=== PATIENT | female | born 1980 | race American Indian/Alaskan Native ===

== ENCOUNTER 2017-05-23 02:11 | Emergency (ER) | payer SELFPAY ==
[2017-05-23] MEDS ORDERED: ASPIRIN PO ONE (05:40)
[2017-05-23 06:01] LABS: Bilirubin,Urine NEG (Negative); Blood,Urine SM (Negative); Color,Urine Yellow (Yellow); Mucus,Urine FEW /HPF; Protein,Urine <15 mg/dL mg/dL (Negative); RBC,Urine < 1.0 /HPF (0.0-6.0); Urobilinogen,Urine < 2.0 mg/dL (<2.0)
[2017-05-23 06:11] LABS: Basophils % (Auto) 0.3 % (0.0-1.8); Eosinophils # (Auto) 0.1 K/mm3 (0.0-0.4); Eosinophils % (Auto) 0.9 % (0.0-4.3); Hematocrit 37.1 % (30.3-42.9); Hemoglobin 12.3 gm/dl (10.1-14.3); Lymphocytes # (Auto) 2.2 K/mm3 (1.2-5.4); Lymphocytes % (Auto) 38.5 % (13.4-35.0); Mean Corpuscular HGB Conc 33 % (30-34); Mean Corpuscular Hemoglobin 27 pg (28-32); Mean Corpuscular Volume 81 fl (79-97); Monocytes # (Auto) 0.5 K/mm3 (0.0-0.8); Monocytes % (Auto) 8.4 % (0.0-7.3); Platelet Count 374 K/mm3 (140-440); Red Blood Count 4.57 M/mm3 (3.65-5.03); Red Cell Distribution Width 14.3 % (13.2-15.2)
[2017-05-23 06:23] LABS: BUN/Creatinine Ratio 13; Blood Urea Nitrogen 8 mg/dL (7-17); Calcium 8.8 mg/dL (8.4-10.2); Hemolysis Index 2
[2017-05-23 12:00] VITALS: BP 127/68
[2017-05-23] MEDS ORDERED: ZOFRAN ODT PO ONE (12:16)
--- NOTE | 2017-05-23 12:50 | XRay Report ---
ABDOMINAL SERIES: History: Chest pain, abdominal pain. Supine and upright views of the abdomen and frontal view of the chest are submitted. There is gas mixed with moderate stool throughout the colon. There are no dilated loops of bowel or air-fluid levels. There is no free intraperitoneal gas. The lungs are clear. IMPRESSION: Fecal retention.
--- NOTE | 2017-05-23 13:04 | Emergency Department Report ---
ED Chest Pain HPI - General Chief Complaint: Chest Pain Stated Complaint: CHEST PAIN, BREAST SWELLING Time Seen by Provider: 05/23/17 12:01 Source: patient Mode of arrival: Ambulatory Limitations: No Limitations - History of Present Illness Initial Comments: This is a 37 year-old female presents to the emergency department with a complaint of a 2 to three-day history of some midsternal nonradiating chest pain, breast swelling, abdominal bloating and increased frequent urination. The patient says that she feels like she is but she took a home test and said it was negative. She says that her abdomen feels like there is "something crawling around inside of it." She also had one episode of vomiting yesterday but still has some mild nausea. She does not currently have a primary care physician. She denies any past medical history. No recent travel or sick contacts at home. She has not taken anything for her symptoms prior to presentation. Severity scale (0 -10): 4 - Related Data Previous Rx's Medication Instructions Recorded Last Taken Type Docusate Sodium [Colace] 100 mg PO BID PRN #20 capsule 05/23/17 Unknown Rx Magnesium Citrate [Citrate of 300 ml PO NOW #1 bottle 05/23/17 Unknown Rx Magnesia] Allergies Allergy/AdvReac Type Severity Reaction Status Date / Time No Known Allergies Allergy Unverified 05/23/17 05:39 Heart Score - HEART Score History: Slightly suspicious EKG: Normal Age: < 45 Risk factors: No known risk factors Troponin: < normal limit HEART Score: 0 - Critical Actions Critical Actions: 0-3 pts:0.9-1.7%risk of adverse cardiac event.Candidate for discharge ED Review of Systems ROS: Stated complaint: CHEST PAIN, BREAST SWELLING Other details as noted in HPI Comment: All other systems reviewed and negative Constitutional: denies: chills, fever Eyes: denies: eye pain, eye discharge, vision change ENT: denies: ear pain, throat pain Respiratory: denies: cough, shortness of breath, wheezing Cardiovascular: chest pain. denies: palpitations Gastrointestinal: abdominal pain, nausea Genitourinary: denies: urgency, dysuria, discharge Musculoskeletal: denies: back pain, joint swelling, arthralgia Skin: denies: rash, lesions Neurological: denies: headache, weakness, paresthesias ED Past Medical Hx - Past Medical History Previous Medical History?: No - Surgical History Past Surgical History?: Yes Additional Surgical History: x1 - Social History Smoking Status: Never Smoker Substance Use Type: None - Medications Home Medications: Home Medications Medication Instructions Recorded Confirmed Last Taken Type Docusate Sodium [Colace] 100 mg PO BID PRN #20 capsule 05/23/17 Unknown Rx Magnesium Citrate [Citrate of 300 ml PO NOW #1 bottle 05/23/17 Unknown Rx Magnesia] ED Physical Exam - General Limitations: No Limitations - Other Other exam information: GENERAL: The patient is well-developed well-nourished. HENT: Normocephalic. Atraumatic. Patient has moist mucous membranes. EYES: Extraocular motions are intact. Pupils equal reactive to light bilaterally. NECK: Supple. Trachea is midline. CHEST/LUNGS: Clear to auscultation. There is no respiratory distress noted. HEART/CARDIOVASCULAR: Regular. There is no tachycardia. There is no murmur. ABDOMEN: Abdomen is soft, nontender. Patient has normal bowel sounds. There is no abdominal distention. SKIN: Skin is warm and dry. NEURO: The patient is awake, alert, and oriented. The patient is cooperative. The patient has no focal neurologic deficits. The patient has normal speech. MUSCULOSKELETAL: There is no tenderness or deformity. There is no limitation range of motion. There is no evidence of acute injury. ED Course Vital Signs 05/23/17 05/23/17 05/23/17 05:32 11:58 11:59 Temperature 98 F 98.2 F Pulse Rate 75 67 Respiratory 18 13 13 Rate Blood Pressure 114/64 Blood Pressure 127/68 [Right] O2 Sat by Pulse 98 100 100 Oximetry JEIMY score - Jeimy Score Age > 65: (0) No Aspirin use within the Past 7 Days: (0) No 3 or more CAD Risk Factors: (0) No 2 or more Angina events in past 24 hrs: (0) No Known CAD with more than 50% Stenosis: (0) No Elevated Cardiac Markers: (0) No ST Deviation Greater than 0.5mm: (0) No JEIMY Score: 0 ED Medical Decision Making - Lab Data Result diagrams: 05/23/17 05:53 05/23/17 05:53 - EKG Data -: EKG Interpreted by Nv EKG shows normal: sinus rhythm, axis, intervals, QRS complexes, ST-T waves Rate: normal - EKG Data When compared to previous EKG there are: previous EKG unavailable Interpretation: normal EKG - Radiology Data Radiology results: image reviewed interpreted by me: Chest x-ray does not show any acute process. There are no pleural effusions, obvious pneumonia and there is no pneumothorax. Abdominal x-ray shows increased stool volume and nonspecific bowel gas but no signs of obstruction or any other acute process. - Medical Decision Making Patient presents with complaint of some intermittent chest pain, breast swelling , some bloating and a weird abdominal sensation. We confirmed, via labs, the patient is not . EKG did not show any signs of ST elevation [place], ischemia or dysrhythmia. Labs have been mostly unremarkable including negative troponins 3. She has normal belly labs. Urinalysis does not show any urinary tract infection. Chest x-ray does not show any acute process. Abdominal x-ray shows increased stool volume and some fecal retention. Vital signs stable throughout her ED course including being afebrile. The patient is very low on the Magana score criteria and has a JEIMY score of 0. She is low on the well's score criteria and negative on the pulmonary embolism rule out criteria. She appears safe for discharge at this time. She has been given multiple referrals for primary care clinics in the area. She has been given a prescription for stool softeners and laxative. She has been encouraged to return to the emergency Department with any worsening of her symptoms or any acute distress. - Differential Diagnosis constipation, [place], pneumonia, Critical Care Time: No Critical care attestation.: If time is entered above; I have spent that time in minutes in the direct care of this critically ill patient, excluding procedure time. ED Disposition Clinical Impression: Increased stool volume Chest pain Qualifiers: Chest pain type: unspecified Qualified Code(s): R07.9 - Chest pain, unspecified Abdominal pain Qualifiers: Abdominal location: generalized Qualified Code(s): R10.84 - Generalized abdominal pain Disposition: - TO HOME OR SELFCARE Is pt being admited?: No Condition: Stable Instructions: Chest Pain (ED), Constipation (ED), High Fiber Diet (ED), Abdominal Pain (ED) Additional Instructions: Please follow up with a primary care physician as soon as possible. Return to the emergency Department with any worsening of your symptoms or any acute distress. Prescriptions: Docusate Sodium [Colace] 100 mg PO BID PRN #20 capsule PRN Reason: Constipation Magnesium Citrate [Citrate of Magnesia] 300 ml PO NOW #1 bottle Referrals: [facility] [Outside] - 3-5 Days [facility] [Outside] - 3-5 Days [facility] [Outside] - 3-5 Days [facility] [Outside] - 3-5 Days Time of Disposition: 13:12
== END 2017-05-23 13:50 | disposition home or self-care (01) ==
LOC: ED 02:11
DX: R07.89 Other chest pain (principal)
CPT/HCPCS: 36415; 74022; 80048; 81001; 84484; 84703; 85025; 87086; 93005; 93010; 99284; Q0162

== ENCOUNTER 2017-07-18 00:34 | Emergency (ER) | payer SELFPAY ==
[2017-07-18 02:13] LABS: Basophils # (Auto) 0.1 K/mm3 (0.0-0.1); Basophils % (Auto) 0.6 % (0.0-1.8); Eosinophils # (Auto) 0.1 K/mm3 (0.0-0.4); Eosinophils % (Auto) 1.1 % (0.0-4.3); Hematocrit 39.2 % (30.3-42.9); Lymphocytes # (Auto) 2.5 K/mm3 (1.2-5.4); Lymphocytes % (Auto) 29.2 % (13.4-35.0); Mean Corpuscular HGB Conc 33 % (30-34); Mean Corpuscular Hemoglobin 27 pg (28-32); Mean Corpuscular Volume 81 fl (79-97); Monocytes # (Auto) 0.4 K/mm3 (0.0-0.8); Monocytes % (Auto) 4.4 % (0.0-7.3); Platelet Count 390 K/mm3 (140-440); Red Blood Count 4.82 M/mm3 (3.65-5.03); Red Cell Distribution Width 14.5 % (13.2-15.2)
[2017-07-18 02:22] LABS: Alanine Aminotransferase 9 units/L (7-56); Albumin 4.2 g/dL (3.9-5); BUN/Creatinine Ratio 7; Blood Urea Nitrogen 5 mg/dL (7-17); Calcium 9.4 mg/dL (8.4-10.2); Hemolysis Index 5
[2017-07-18 08:10] VITALS: BP 100/57
--- NOTE | 2017-07-18 09:31 | Emergency Department Report ---
ED Abdominal Pain HPI - General Chief Complaint: Abdominal Pain Stated Complaint: ABD PAIN Time Seen by Provider: 07/18/17 09:25 Source: patient Mode of arrival: Ambulatory Limitations: No Limitations - History of Present Illness Initial Comments: N is 37 years old female with no significant past medical history. Patient presented to the ER complaining of suprapubic pain for the last 3 days associated with dysuria and frequency. Patient denied any fever, chills, nausea or vomiting. MD Complaint: abdominal pain -: days(s) Location: suprapubic Radiation: none Migration to: no migration Severity scale (0 -10): 10 Quality: fullness, burning Consistency: intermittent Associated Symptoms: denies other symptoms, dysuria. denies: nausea, vomiting, diarrhea, chills, constipation - Related Data Previous Rx's Medication Instructions Recorded Last Taken Type Docusate Sodium [Colace] 100 mg PO BID PRN #20 capsule 05/23/17 Unknown Rx Magnesium Citrate [Citrate of 300 ml PO NOW #1 bottle 05/23/17 Unknown Rx Magnesia] Ciprofloxacin HCl [Ciprofloxacin 500 mg PO Q12H #14 tab 07/18/17 Unknown Rx TAB] Allergies Allergy/AdvReac Type Severity Reaction Status Date / Time No Known Allergies Allergy Unverified 05/23/17 05:39 ED Review of Systems ROS: Stated complaint: ABD PAIN Other details as noted in HPI Comment: All other systems reviewed and negative Constitutional: denies: chills, fever Respiratory: denies: cough, shortness of breath, SOB with exertion Cardiovascular: denies: chest pain Gastrointestinal: abdominal pain. denies: nausea, vomiting, diarrhea, constipation, hematemesis, melena, hematochezia Genitourinary: urgency, dysuria, frequency ED Past Medical Hx - Past Medical History Previous Medical History?: No - Surgical History Past Surgical History?: Yes Additional Surgical History: x1 - Social History Smoking Status: Never Smoker Substance Use Type: None - Medications Home Medications: Home Medications Medication Instructions Recorded Confirmed Last Taken Type Docusate Sodium [Colace] 100 mg PO BID PRN #20 capsule 05/23/17 Unknown Rx Magnesium Citrate [Citrate of 300 ml PO NOW #1 bottle 05/23/17 Unknown Rx Magnesia] Ciprofloxacin HCl [Ciprofloxacin 500 mg PO Q12H #14 tab 07/18/17 Unknown Rx TAB] ED Physical Exam - General Limitations: No Limitations General appearance: alert, in no apparent distress - Head Head exam: Present: atraumatic, normocephalic - Eye Eye exam: Present: normal appearance - ENT ENT exam: Present: normal exam, normal orophraynx, mucous membranes moist - Neck Neck exam: Present: normal inspection, full ROM. Absent: tenderness, meningismus, lymphadenopathy, thyromegaly - Respiratory Respiratory exam: Present: normal lung sounds bilaterally - Cardiovascular Cardiovascular Exam: Present: regular rate, normal rhythm, normal heart sounds - GI/Abdominal GI/Abdominal exam: Present: soft, tenderness (suprapubic tenderness), normal bowel sounds. Absent: distended, guarding, rebound, rigid, organomegaly, mass, bruit, pulsatile mass, hernia - Extremities Exam Extremities exam: Present: normal inspection, full ROM, normal capillary refill - Back Exam Back exam: Present: normal inspection, full ROM. Absent: CVA tenderness (L) - Neurological Exam Neurological exam: Present: alert, oriented X3, CN II-XII intact, normal gait - Skin Skin exam: Present: warm, intact, normal color ED Course Vital Signs 07/18/17 07/18/17 07/18/17 01:02 08:09 09:27 Temperature 98.7 F 98.2 F Pulse Rate 89 75 Respiratory 14 18 18 Rate Blood Pressure 121/85 100/57 O2 Sat by Pulse 100 Oximetry ED Medical Decision Making - Lab Data Result diagrams: 07/18/17 01:34 07/18/17 01:34 Critical care attestation.: If time is entered above; I have spent that time in minutes in the direct care of this critically ill patient, excluding procedure time. ED Disposition Clinical Impression: Abdominal pain, UTI (urinary tract infection), Dysuria Disposition: -01 TO HOME OR SELFCARE Is pt being admited?: No Condition: Stable Instructions: Urinary Tract Infection in Women (ED), Abdominal Pain (ED) Prescriptions: Ciprofloxacin HCl [Ciprofloxacin TAB] 500 mg PO Q12H #14 tab Referrals: PRIMARY CARE, [Primary Care Provider] - 3-5 Days
[2017-07-18 09:49] LABS: Bilirubin,Urine NEG (Negative); Blood,Urine SM (Negative); Calcium Oxalate Crystals,Urine 2+; Color,Urine Yellow (Yellow); Mucus,Urine 3+ /HPF; Protein,Urine <15 mg/dL mg/dL (Negative); Urobilinogen,Urine < 2.0 mg/dL (<2.0)
== END 2017-07-18 10:43 | disposition home or self-care (01) ==
LOC: ED 00:34
DX: N39.0 Urinary tract infection, site not specified (principal)
CPT/HCPCS: 36415; 80053; 81001; 84703; 85025; 99283

== ENCOUNTER 2017-08-28 07:10 | Emergency (ER) | payer SELFPAY ==
[2017-08-28 07:23] VITALS: BP 109/48
--- NOTE | 2017-08-28 08:32 | Emergency Department Report ---
Chief Complaint: Abdominal Pain Stated Complaint: STOMACH PAIN Time Seen by Provider: 08/28/17 08:28 - HPI History of Present Illness: Patient reports that she is requesting a test because she can't afford one [id number]. She said she was having some cramping but is because she was hungry. She reports that she is homeless. Denies any vaginal bleeding or discharge. Denies any urinary burning frequency or urgency. She reports that her last menstrual period was 07/22/2017. She says she has gas and it was crampy she was having pain yesterday but she hasn't had any pain today. She reports that she is hungry and she needs something to eat. Denies any fever or chills or nausea or vomiting. Denies any chest pain or shortness of breath. - ROS Review of Systems: Patient states requesting tests. Pain is 0-10 at present. Negative vaginal bleeding, negative abdominal pain at present. Positive hunger. Negative urinary burning frequency or urgency. Negative nausea or vomiting. Negative back pain. - Exam Vital Signs: Vital Signs 08/28/17 07:18 Temperature 98.5 F Pulse Rate 64 Respiratory 18 Rate Blood Pressure 109/48 O2 Sat by Pulse 100 Oximetry Physical Exam: Gen.: This is a 37-year-old female well-nourished well-developed in no acute distress. Lungs: Clear to auscultation bilaterally, no rhonchi wheezes or rales CV: S1, S2. Regular rate and rhythm Abdomen: Nontender to palpation in all quadrants, no guarding or rebound tenderness. No rigidity. No distention. No CVA tenderness. Skin: Clean dry and intact, no rash or lesions. Psych: Normal mood and behavior. MSE screening note: Focused history and physical exam performed. Due to findings the following was ordered:See MDM Patient discussed with doctor:: KEVIN RO ED Medical Decision Making - Medical Decision Making This is a 37-year-old patient here to have tests. She is asymptomatic. She mentioned to triage nurse that she was having abdominal cramping and she is hungry and homeless. I interviewed her and she denied any abdominal pain or any symptoms. She doesn't have any nausea or vomiting, chest pain or shortness of breath. Her pain at present is 0-10. Patient states she cannot afford test and she would like something to eat status when she came here. I saw patient and she is stable and physical exam is normal. I discussed with patient that she'll need to go to [facility], health department or free clinic for for testing. She was given her multiple resources on clinic that she can go 2 to have test also discussed with her that she can go to dialysis door by a test for a dollar. She voiced understanding. A/P 1: Encounter for tests-patient is stable and she was referred to outside clinic to have testing. She is not having any symptoms related to any emergent problem. Patient given resources on multiple clinic for free test. Discharged home in stable condition. Vital signs are stable and she is afebrile. She voiced understanding of following up and I discussed with her that if she has any vaginal bleeding, abdominal pain, back pain, urinary burning frequency urgency to return to the emergency room otherwise follow-up at clinics that she was referred to and she voiced understanding and ED Disposition for MSE Clinical Impression: Encounter for test Qualifiers: test result: result unknown Qualified Code(s): Z32.00 - Encounter for test, result unknown Disposition: DC-01 TO HOME OR SELFCARE Is pt being admited?: No Does the pt Need Aspirin: No Condition: Stable Instructions: Normal Exam (ED) Additional Instructions: Please use resources that were given to you to have tests Return to the emergency room if he develops vaginal bleeding, abdominal pain, back pain, nausea and vomiting and her urinary burning frequency urgency Referrals: [facility] [Outside[facility] - [facility] Hours [facility] - [facility] Hours
== END 2017-08-28 08:33 | disposition home or self-care (01) ==
LOC: ED 07:10
DX: T73.0XXA Starvation, initial encounter (principal); R10.9 Unspecified abdominal pain; X58.XXXA Exposure to other specified factors, initial encounter
CPT/HCPCS: 99282

== ENCOUNTER 2017-09-01 15:18 | Emergency (ER) | payer SELFPAY ==
[2017-09-01 18:40] LABS: Bacteria,Urine 1+ /HPF (Negative); Bilirubin,Urine NEG (Negative); Blood,Urine NEG (Negative); Color,Urine Yellow (Yellow); Mucus,Urine 2+ /HPF; Protein,Urine <15 mg/dL mg/dL (Negative); Urobilinogen,Urine < 2.0 mg/dL (<2.0)
[2017-09-01 18:45] LABS: HCG Qualitative,Urine Positive (Negative)
--- NOTE | 2017-09-01 19:11 | Emergency Department Report ---
ED Abdominal Pain HPI - General Chief Complaint: Abdominal Pain Stated Complaint: FREQUENT URINATION/ABD PAIN Time Seen by Provider: 09/01/17 17:45 Source: patient Mode of arrival: Ambulatory Limitations: No Limitations - History of Present Illness Initial Comments: Patient is a 37-year-old female who states she's felt bloated for approximately 3 weeks and has had some epigastric discomfort. Patient states she's had some mild nausea but no vomiting or diarrhea. Patient states his no fevers chills cough. Patient states for the past 2 days she's had some urinary frequency as well as dysuria. Patient states her last missed her period was in July. - Related Data Previous Rx's Medication Instructions Recorded Last Taken Type Docusate Sodium [Colace] 100 mg PO BID PRN #20 capsule 05/23/17 Unknown Rx Magnesium Citrate [Citrate of 300 ml PO NOW #1 bottle 05/23/17 Unknown Rx Magnesia] Ciprofloxacin HCl [Ciprofloxacin 500 mg PO Q12H #14 tab 07/18/17 Unknown Rx TAB] Famotidine [Pepcid] 20 mg PO BID #14 tablet 09/01/17 Unknown Rx Nitrofurantoin [place]asta/M-Cryst 100 mg PO Q12HR #14 capsule 09/01/17 Unknown Rx [Macrobid CAP] Allergies Allergy/AdvReac Type Severity Reaction Status Date / Time No Known Allergies Allergy Unverified 05/23/17 05:39 ED Review of Systems ROS: Stated complaint: FREQUENT URINATION/ABD PAIN Other details as noted in HPI Comment: All other systems reviewed and negative ED Past Medical Hx - Past Medical History Hx Psychiatric Treatment: Yes (Anxiety) - Surgical History Additional Surgical History: x1 - Social History Smoking Status: Never Smoker Substance Use Type: None - Medications Home Medications: Home Medications Medication Instructions Recorded Confirmed Last Taken Type Docusate Sodium [Colace] 100 mg PO BID PRN #20 capsule 05/23/17 Unknown Rx Magnesium Citrate [Citrate of 300 ml PO NOW #1 bottle 05/23/17 Unknown Rx Magnesia] Ciprofloxacin HCl [Ciprofloxacin 500 mg PO Q12H #14 tab 07/18/17 Unknown Rx TAB] Famotidine [Pepcid] 20 mg PO BID #14 tablet 09/01/17 Unknown Rx Nitrofurantoin [place]/M-Cryst 100 mg PO Q12HR #14 capsule 09/01/17 Unknown Rx [Macrobid CAP] ED Physical Exam - General Limitations: No Limitations General appearance: alert, in no apparent distress - Head Head exam: Present: atraumatic, normocephalic - Eye Eye exam: Present: normal appearance - ENT ENT exam: Present: mucous membranes moist - Neck Neck exam: Present: normal inspection - Respiratory Respiratory exam: Present: normal lung sounds bilaterally. Absent: respiratory distress, wheezes, rales - Cardiovascular Cardiovascular Exam: Present: regular rate, normal rhythm. Absent: systolic murmur, diastolic murmur, rubs, gallop - GI/Abdominal GI/Abdominal exam: Present: soft, normal bowel sounds. Absent: distended, tenderness, guarding, rebound - Extremities Exam Extremities exam: Present: normal inspection - Back Exam Back exam: Present: normal inspection - Neurological Exam Neurological exam: Present: alert, oriented X3 - Psychiatric Psychiatric exam: Present: normal affect, normal mood - Skin Skin exam: Present: warm, dry, intact, normal color. Absent: rash ED Course Vital Signs 09/01/17 15:42 Temperature 98.6 F Pulse Rate 79 Respiratory 18 Rate O2 Sat by Pulse 99 Oximetry ED Medical Decision Making - Lab Data Lab Results 09/01/17 09/01/17 Range/Units 17:53 Unknown Urine Color Yellow (Yellow) Urine Turbidity Clear (Clear) Urine pH 6.0 (5.0-7.0) Ur Specific [place] 1.023 (1.003-1.030) Urine Protein <15 mg/dl (Negative) mg/dL Urine Glucose (UA) Neg (Negative) mg/dL Urine Ketones Neg (Negative) mg/dL Urine Blood Neg (Negative) Urine Nitrite Neg (Negative) Urine Bilirubin Neg (Negative) Urine Urobilinogen < 2.0 (<2.0) mg/dL Ur Leukocyte Esterase Tr (Negative) Urine WBC (Auto) 13.0 H (0.0-6.0) /HPF Urine RBC (Auto) 4.0 (0.0-6.0) /HPF U Epithel Cells (Auto) 3.0 (0-13.0) /HPF Urine Bacteria (Auto) 1+ (Negative) /HPF Urine Mucus 2+ /HPF Urine Yeast (Budding) Few /HPF Urine HCG, Qual Positive A (Negative) Critical care attestation.: If time is entered above; I have spent that time in minutes in the direct care of this critically ill patient, excluding procedure time. ED Disposition Clinical Impression: Qualifiers: Weeks of gestation: less than 8 weeks Qualified Code(s): Z3A.01 - Less than 8 weeks gestation of Acute cystitis Qualifiers: Hematuria presence: without hematuria Qualified Code(s): N30.00 - Acute cystitis without hematuria Disposition: TO HOME OR SELFCARE Is pt being admited?: No Does the pt Need Aspirin: No Condition: Stable Instructions: (ED), Urinary Tract Infection in Women (ED) Prescriptions: Famotidine [Pepcid] 20 mg PO BID #14 tablet Nitrofurantoin Shasta/M-Cryst [Macrobid CAP] 100 mg PO Q12HR #14 capsule Referrals: ОЛЕГ BRAUN MD [Staff Physician] - 3-5 Days
[2017-09-01 19:27] VITALS: BP 128/68
== END 2017-09-01 19:28 | disposition home or self-care (01) ==
LOC: ED 15:18
DX: O23.11 Infections of bladder in pregnancy, first trimester (principal); Z3A.01 Less than 8 weeks gestation of pregnancy; F41.9 Anxiety disorder, unspecified
CPT/HCPCS: 81001; 81025; 87076; 87086; 87186; 99283

== ENCOUNTER 2017-09-02 07:40 | Emergency (ER) | payer SELFPAY ==
[2017-09-02 09:55] LABS: Basophils % (Auto) 0.6 % (0.0-1.8); Eosinophils # (Auto) 0.1 K/mm3 (0.0-0.4); Eosinophils % (Auto) 0.9 % (0.0-4.3); Hematocrit 37.3 % (30.3-42.9); Hemoglobin 12.1 gm/dl (10.1-14.3); Lymphocytes # (Auto) 1.7 K/mm3 (1.2-5.4); Lymphocytes % (Auto) 24.3 % (13.4-35.0); Mean Corpuscular HGB Conc 33 % (30-34); Mean Corpuscular Hemoglobin 27 pg (28-32); Mean Corpuscular Volume 83 fl (79-97); Monocytes # (Auto) 0.3 K/mm3 (0.0-0.8); Monocytes % (Auto) 4.8 % (0.0-7.3); Platelet Count 369 K/mm3 (140-440); Red Blood Count 4.49 M/mm3 (3.65-5.03)
[2017-09-02 10:11] LABS: Bacteria,Urine 1+ /HPF (Negative); Bilirubin,Urine NEG (Negative); Blood,Urine NEG (Negative); Color,Urine Yellow (Yellow); Mucus,Urine 2+ /HPF; Protein,Urine <15 mg/dL mg/dL (Negative); Urobilinogen,Urine < 2.0 mg/dL (<2.0)
[2017-09-02 10:13] LABS: BUN/Creatinine Ratio 12; Blood Urea Nitrogen 7 mg/dL (7-17); Calcium 9.5 mg/dL (8.4-10.2); Hemolysis Index 6
[2017-09-02 10:14] LABS: HCG Qualitative,Urine Positive (Negative)
[2017-09-02 10:19] LABS: Amphetamine Screen,Urine PRESUMPTIVE NEGATIVE; Benzodiazepines Screen,Urine PRESUMPTIVE NEGATIVE; Cannabinoid Screen,Urine PRESUMPTIVE NEGATIVE; Cocaine Screen,Urine PRESUMPTIVE NEGATIVE; Methadone Screen,Urine PRESUMPTIVE NEGATIVE; Opiate Screen,Urine PRESUMPTIVE NEGATIVE
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
[2017-09-02] MEDS ORDERED: ZOVIRAX PO ONE (19:30)
--- NOTE | 2017-09-03 09:36 | Ultrasound Report ---
OB sonogram: History: Positive test. Findings: Uterus measures 9.7 x 5.1 x 5.6 cm. Endometrial thickness 21.9 mm. No intrauterine gestational sac identified. No fluid noted in the endometrium. Right ovary 2.8 x 2 x 2.2 cm. No mass. Left ovary 2.4 x 1.6 x 2.2 cm. No mass. Impression: No evidence of intrauterine gestation.
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
[2017-09-03 18:27] VITALS: BP 113/56
== END 2017-09-04 10:26 | disposition home or self-care (01) ==
LOC: ED 07:40 → EEVIPCON 07:40 → ED 09-04 10:26
DX: O99.341 Other mental disorders complicating pregnancy, first trimester (principal); O23.31 Infections of other parts of urinary tract in pregnancy, first trimester; B00.9 Herpesviral infection, unspecified; F41.9 Anxiety disorder, unspecified; Z59.0 Homelessness; Z3A.01 Less than 8 weeks gestation of pregnancy; Z79.899 Other long term (current) drug therapy
CPT/HCPCS: 36415; 76801; 80048; 80307; 81001; 81025; 84702; 85025; 99285; G0480; 80320

== ENCOUNTER 2017-09-18 18:46 | Emergency (ER) | payer MEDICAID, OTHER ==
[2017-09-18 19:19] LABS: Hematocrit 36.3 % (30.3-42.9); Mean Corpuscular HGB Conc 33 % (30-34); Mean Corpuscular Hemoglobin 27 pg (28-32); Mean Corpuscular Volume 83 fl (79-97); Platelet Count 430 K/mm3 (140-440); Red Blood Count 4.36 M/mm3 (3.65-5.03); Red Cell Distribution Width 15.5 % (13.2-15.2)
[2017-09-18 19:27] LABS: BUN/Creatinine Ratio 20; Blood Urea Nitrogen 10 mg/dL (7-17); Calcium 9.5 mg/dL (8.4-10.2); Hemolysis Index 0
[2017-09-18] MEDS ORDERED: TYLENOL PO ONE (20:42)
[2017-09-18 21:31] VITALS: BP 129/62
[2017-09-18] MEDS ORDERED: MACROBID PO ONE (21:59)
--- NOTE | 2017-09-18 22:01 | Emergency Department Report ---
HPI - General Chief Complaint: Abdominal Pain Time Seen by Provider: 09/18/17 20:31 - HPI HPI: The patient is a 37-year-old female , EGA 6 weeks, who presents for evaluation of abdominal pain. The patient reports onset of abdominal pain for the past one week, crampy in quality, improved with lying on her side, currently mild in severity. The patient denies trauma to the abdomen, fever, chills, night sweats, diarrhea, blood in the stool, dark tarry stool, dysuria, hematuria, flank pain, genital discharge, vaginal bleeding, inability to pass flatus. ED Past Medical Hx - Past Medical History Hx Psychiatric Treatment: Yes (Anxiety) - Surgical History Additional Surgical History: x1 - Social History Smoking Status: Never Smoker Substance Use Type: None - Medications Home Medications: Home Medications Medication Instructions Recorded Confirmed Last Taken Type Docusate Sodium [Colace] 100 mg PO BID PRN #20 capsule 05/23/17 09/03/17 Unknown Rx Magnesium Citrate [Citrate of 300 ml PO NOW #1 bottle 05/23/17 09/03/17 Unknown Rx Magnesia] Ciprofloxacin HCl [Ciprofloxacin 500 mg PO Q12H #14 tab 07/18/17 09/03/17 Unknown Rx TAB] Famotidine [Pepcid] 20 mg PO BID #14 tablet 09/01/17 09/03/17 Unknown Rx Vit Calc,Iron,Folic 1 each PO QDAY #30 tablet 09/02/17 Unknown Rx [ Vitamins] Nitrofurantoin [place]/M-Cryst 100 mg PO Q12HR #14 capsule 09/03/17 Unknown Rx [Macrobid CAP] Nitrofurantoin [place]/M-Cryst 100 mg PO Q12HR #14 capsule 09/18/17 Unknown Rx [Macrobid CAP] Pnv No.95/Ferrous Fum/Folic AC 1 each PO QDAY #31 tablet 09/18/17 Unknown Rx [ Vitamin Tablet] ED Review of Systems ROS: Stated complaint: NAUSEA Other details as noted in HPI Constitutional: denies: fever ENT: denies: throat or neck pain Respiratory: denies: cough, shortness of breath Cardiovascular: denies: chest pain Endocrine: denies unexplained weight loss or gain Gastrointestinal: reports abdominal pain, nausea Genitourinary: denies: dysuria Musculoskeletal: denies: leg swelling Skin: denies: rash Neurological: denies: headache Hematological/Lymphatic: denies: easy bleeding or easy bruising Psych: denies sadness or hopelessness Physical Exam - Physical Exam Vital Signs: Vital Signs 09/18/17 09/18/17 09/18/17 18:53 21:30 21:33 Temperature 98.5 F 98.2 F Pulse Rate 79 102 H Respiratory 18 16 16 Rate Blood Pressure 121/68 Blood Pressure 129/62 [Left] O2 Sat by Pulse 97 97 Oximetry Physical Exam: General: well-nourished, well-developed, no acute distress Head: Normocephalic, atraumatic Eyes: normal sclera ENT: Mucous membranes are pink and moist Neck: trachea midline, neck supple, No neck stiffness, no cervical adenopathy Respiratory: Breath sounds equal bilaterally, no wheezing, rales, or rhonchi Cardio: S1 and S2 present, no murmurs, rubs, gallops, capillary refill is brisk Abdomen: Normoactive bowel sounds, soft abdomen, suprapubic tenderness to palpation present, no rigidity, no guarding or rebound tenderness Chest WALL/Back: No tenderness to palpation of the chest wall, no CVA tenderness with percussion Musc: No pitting edema Skin: No rash Neuro: no facial drooping, normal speech Psych: Normal affect ED Course Vital Signs 09/18/17 09/18/17 09/18/17 18:53 21:30 21:33 Temperature 98.5 F 98.2 F Pulse Rate 79 102 H Respiratory 18 16 16 Rate Blood Pressure 121/68 Blood Pressure 129/62 [Left] O2 Sat by Pulse 97 97 Oximetry ED Medical Decision Making - Lab Data Result diagrams: 09/18/17 19:06 09/18/17 19:06 - Medical Decision Making The patient was seen and examined by myself. The patient is placed on a phototypesetting equipment monitor and continuous pulse ox. On initial evaluation, the patient was found to be in no distress. Evaluation orders were placed. The patient was given a tablet of Tylenol for her pain. Lab results exhibited positive beta hCG and Rh+ blood type. Ultrasound of the pelvis reveals a live intrauterine , As yolk sac is present. The patient was reevaluated and reported that their symptoms were markedly improved. The patient is stable for discharge with outpatient follow-up. The patient is given follow-up and return instructions. The patient expressed understanding and agreed with the plan. The patient is discharged in stable condition. Critical care attestation.: If time is entered above; I have spent that time in minutes in the direct care of this critically ill patient, excluding procedure time. ED Disposition Clinical Impression: Acute suprapubic pain, Abdominal pain during in first trimester Disposition: TO HOME OR SELFCARE Is pt being admited?: No Does the pt Need Aspirin: No Condition: Stable Instructions: Abdominal Pain (ED), Abdominal Pain in (ED) Prescriptions: Nitrofurantoin [place]/M-Cryst [Macrobid CAP] 100 mg PO Q12HR #14 capsule Pnv No.95/Ferrous Fum/Folic AC [ Vitamin Tablet] 1 each PO QDAY #31 tablet Referrals: ОЛЕГ BRAUN MD [Staff Physician] - 3-5 Days Time of Disposition: 21:58
--- NOTE | 2017-09-18 22:16 | Ultrasound Report ---
FINAL REPORT EXAM: US OB TRANSVAGINAL HISTORY: + with pelvic pain . LMP unknown. Serum beta HCG quantitation 29,329 (7-12 weeks) TECHNIQUE: Ultrasound of the pelvis using transabdominal and transvaginal imaging PRIORS: None. FINDINGS: Uterus: Uterus is enlarged in size and normal and homogeneous in echogenicity without focal fibroid formation. The uterus measures 10.8 x 5.6 x 6.6 cm in size. There is a single early viable intrauterine gestation noted. Intrauterine gestation: There is a single intrauterine gestation identified with both a pole and yolk sac. heart rate is monitored at 121 BPM using M-mode doppler. [place]-rump length measurement of 3.6 mm corresponds to estimated age 6 weeks 0 days with EDC 05/14/2018. Ovaries: The right ovary is enlarged in size. Both ovaries appear normal in echogenicity with normal blood flow bilaterally. The right ovary measures 4.5 x 2.2 x 2.4 cm and the left ovary measures 3.6 x 1.5 x 1.7 cm in size. Other: There is no evidence for solid adnexal mass is seen. There is no free fluid in the cul-de-sac. IMPRESSION: Single intrauterine viable with an approximate age of 6 weeks 0 days.
--- NOTE | 2017-09-18 22:17 | Ultrasound Report ---
FINAL REPORT EXAM: US OB < = 14 WEEKS FETUS HISTORY: + with pelvic pain . LMP unknown. Serum beta HCG quantitation 29,329 (7-12 weeks) TECHNIQUE: Ultrasound of the pelvis using transabdominal and transvaginal imaging PRIORS: None. FINDINGS: Uterus: Uterus is enlarged in size and normal and homogeneous in echogenicity without focal fibroid formation. The uterus measures 10.8 x 5.6 x 6.6 cm in size. There is a single early viable intrauterine gestation noted. Intrauterine gestation: There is a single intrauterine gestation identified with both a pole and yolk sac. heart rate is monitored at 121 BPM using M-mode doppler. [place]-rump length measurement of 3.6 mm corresponds to estimated age 6 weeks 0 days with EDC 05/14/2018. Ovaries: The right ovary is enlarged in size. Both ovaries appear normal in echogenicity with normal blood flow bilaterally. The right ovary measures 4.5 x 2.2 x 2.4 cm and the left ovary measures 3.6 x 1.5 x 1.7 cm in size. Other: There is no evidence for solid adnexal mass is seen. There is no free fluid in the cul-de-sac. IMPRESSION: Single intrauterine viable with an approximate age of 6 weeks 0 days.
== END 2017-09-18 22:10 | disposition home or self-care (01) ==
LOC: ED 18:46
DX: O26.891 Other specified pregnancy related conditions, first trimester (principal); O99.341 Other mental disorders complicating pregnancy, first trimester; F41.9 Anxiety disorder, unspecified; Z3A.01 Less than 8 weeks gestation of pregnancy
CPT/HCPCS: 36415; 76801; 76817; 80048; 84702; 85027; 86900; 86901; 99284

== ENCOUNTER 2017-09-26 01:34 | Emergency (ER) | payer MEDICAID ==
[2017-09-26] MEDS ORDERED: NACL 0.9% 1000 ML 1,000 ML IV ONE (02:27)
[2017-09-26 04:21] LABS: Basophils % (Auto) 0.2 % (0.0-1.8); Eosinophils # (Auto) 0.1 K/mm3 (0.0-0.4); Hematocrit 35.3 % (30.3-42.9); Hemoglobin 11.7 gm/dl (10.1-14.3); Lymphocytes # (Auto) 2.3 K/mm3 (1.2-5.4); Lymphocytes % (Auto) 25.7 % (13.4-35.0); Mean Corpuscular HGB Conc 33 % (30-34); Mean Corpuscular Hemoglobin 28 pg (28-32); Mean Corpuscular Volume 83 fl (79-97); Monocytes # (Auto) 0.6 K/mm3 (0.0-0.8); Monocytes % (Auto) 6.9 % (0.0-7.3); Platelet Count 373 K/mm3 (140-440); Red Blood Count 4.25 M/mm3 (3.65-5.03); Red Cell Distribution Width 15.1 % (13.2-15.2)
[2017-09-26 04:36] LABS: Alanine Aminotransferase 10 units/L (7-56); Albumin 3.8 g/dL (3.9-5); BUN/Creatinine Ratio 10; Blood Urea Nitrogen 6 mg/dL (7-17); Calcium 9.3 mg/dL (8.4-10.2); Hemolysis Index 0
[2017-09-26 10:08] LABS: Bacteria,Urine 2+ /HPF (Negative); Bilirubin,Urine NEG (Negative); Blood,Urine NEG (Negative); Color,Urine Yellow (Yellow); Mucus,Urine FEW /HPF; Protein,Urine <15 mg/dL mg/dL (Negative); Urobilinogen,Urine < 2.0 mg/dL (<2.0)
[2017-09-26 10:29] VITALS: BP 113/49
[2017-09-26] MEDS ORDERED: ZOFRAN ODT PO ONE (10:41)
[2017-09-26] MEDS ORDERED: TYLENOL PO PRN (10:41)
--- NOTE | 2017-09-26 10:43 | Emergency Department Report ---
ED General Adult HPI - General Chief complaint: Abdominal Pain Stated complaint: STOMACH PAIN NAUSEA VOMITING Time Seen by Provider: 09/26/17 10:31 Source: patient, RN notes reviewed, old records reviewed Mode of arrival: Ambulatory Limitations: No Limitations - History of Present Illness Initial comments: This is a 37-year-old female who is not known to this provider previously. Patient reports that she is 3, para 2, at approximately 8 weeks gestation. She does not currently have an AIRPORT REPRESENTATIVE doctor. Patient had an ultrasound performed at this hospital on 09/18/2017, which demonstrated a viable intrauterine at approximately 6 weeks' duration/gestation. She presents to the ER today with a complaint of resolved abdominal pain. She has no pain at this time. She has mild nausea, and thinks that she vomited once in the past 24 hours. She has no lower abdominal pain, and no urinary symptoms. She reports that her complaints have essentially resolved and would like to eat something. Of note, patient has had multiple visits to this emergency department for abdominal pain, including a visit on May 23, July 18, August 28, September 01, September 02 , September 18. -: Gradual Location: abdomen Radiation: non-radiation Quality: aching Consistency: intermittent Improves with: none Worsens with: none Associated Symptoms: nausea/vomiting. denies: confusion, chest pain, cough, diaphoresis, fever/chills, headaches, loss of appetite, malaise, rash, seizure, shortness of breath, syncope, weakness - Related Data Previous Rx's Medication Instructions Recorded Last Taken Type Docusate Sodium [Colace] 100 mg PO BID PRN #20 capsule 05/23/17 Unknown Rx Magnesium Citrate [Citrate of 300 ml PO NOW #1 bottle 05/23/17 Unknown Rx Magnesia] Ciprofloxacin HCl [Ciprofloxacin 500 mg PO Q12H #14 tab 07/18/17 Unknown Rx TAB] Famotidine [Pepcid] 20 mg PO BID #14 tablet 09/01/17 Unknown Rx Vit Calc,Iron,Folic 1 each PO QDAY #30 tablet 09/02/17 Unknown Rx [ Vitamins] Nitrofurantoin [place]/M-Cryst 100 mg PO Q12HR #14 capsule 09/03/17 Unknown Rx [Macrobid CAP] Nitrofurantoin [place]/M-Cryst 100 mg PO Q12HR #14 capsule 09/18/17 Unknown Rx [Macrobid CAP] Pnv No.95/Ferrous Fum/Folic AC 1 each PO QDAY #31 tablet 09/18/17 Unknown Rx [ Vitamin Tablet] Doxylamine Succinate/Vit B6 1 each PO QHS PRN #30 tablet. 09/26/17 Unknown Rx [Eligio [place] 10-10 mg Tablet] Shanel Root [Shanel] 250 mg PO QID PRN #30 capsule 09/26/17 Unknown Rx Vit Calc,Iron,Folic 1 each PO QDAY #30 tablet 09/26/17 Unknown Rx [ Vitamins] Allergies Allergy/AdvReac Type Severity Reaction Status Date / Time No Known Allergies Allergy Unverified 05/23/17 05:39 ED Review of Systems ROS: Stated complaint: STOMACH PAIN NAUSEA VOMITING Other details as noted in HPI Comment: All other systems reviewed and negative ED Past Medical Hx - Past Medical History Previous Medical History?: No Hx Psychiatric Treatment: Yes (Anxiety) - Surgical History Past Surgical History?: No Additional Surgical History: x1 - Social History Smoking Status: Never Smoker Substance Use Type: None - Medications Home Medications: Home Medications Medication Instructions Recorded Confirmed Last Taken Type Docusate Sodium [Colace] 100 mg PO BID PRN #20 capsule 05/23/17 09/03/17 Unknown Rx Magnesium Citrate [Citrate of 300 ml PO NOW #1 bottle 05/23/17 09/03/17 Unknown Rx Magnesia] Ciprofloxacin HCl [Ciprofloxacin 500 mg PO Q12H #14 tab 07/18/17 09/03/17 Unknown Rx TAB] Famotidine [Pepcid] 20 mg PO BID #14 tablet 09/01/17 09/03/17 Unknown Rx Vit Calc,Iron,Folic 1 each PO QDAY #30 tablet 09/02/17 Unknown Rx [ Vitamins] Nitrofurantoin [place]/M-Cryst 100 mg PO Q12HR #14 capsule 09/03/17 Unknown Rx [Macrobid CAP] Nitrofurantoin [place]/M-Cryst 100 mg PO Q12HR #14 capsule 09/18/17 Unknown Rx [Macrobid CAP] Pnv No.95/Ferrous Fum/Folic AC 1 each PO QDAY #31 tablet 09/18/17 Unknown Rx [ Vitamin Tablet] Doxylamine Succinate/Vit B6 1 each PO QHS PRN #30 tablet. 09/26/17 Unknown Rx [Diclegis Dr 10-10 mg Tablet] Shanel Root [Shanel] 250 mg PO QID PRN #30 capsule 09/26/17 Unknown Rx Vit Calc,Iron,Folic 1 each PO QDAY #30 tablet 09/26/17 Unknown Rx [ Vitamins] ED Physical Exam - General Limitations: No Limitations General appearance: alert, in no apparent distress - Head Head exam: Present: atraumatic, normocephalic - Eye Eye exam: Present: normal appearance, EOMI. Absent: nystagmus - ENT ENT exam: Present: normal exam, normal orophraynx, mucous membranes moist, normal external ear exam - Neck Neck exam: Present: normal inspection, full ROM. Absent: tenderness, meningismus - Respiratory Respiratory exam: Present: normal lung sounds bilaterally. Absent: respiratory distress - Cardiovascular Cardiovascular Exam: Present: regular rate, normal rhythm, normal heart sounds. Absent: bradycardia, tachycardia, irregular rhythm, systolic murmur, diastolic murmur, rubs, gallop - GI/Abdominal GI/Abdominal exam: Present: soft, normal bowel sounds. Absent: distended, tenderness, guarding, rebound, rigid, pulsatile mass - Extremities Exam Extremities exam: Present: normal inspection, full ROM, normal capillary refill , other (2+ pulses noted in the bilateral upper, lower extremities. Compartments soft. No long bony tenderness. The pelvis is stable.). Absent: pedal edema, calf tenderness - Back Exam Back exam: Present: normal inspection, full ROM. Absent: tenderness, CVA tenderness (R), paraspinal tenderness, vertebral tenderness - Neurological Exam Neurological exam: Present: alert, oriented X3, CN II-XII intact, normal gait, other (Extraocular movements intact. Tongue midline. No facial droop. Facial sensation intact to light touch in the V1, V2, V3 distribution bilaterally. 5 and 5 strength in 4 extremities.. Sensation is intact to light touch in 4 extremities.). Absent: motor sensory deficit - Psychiatric Psychiatric exam: Present: normal affect, normal mood - Skin Skin exam: Present: warm, dry, intact, normal color. Absent: rash ED Course Vital Signs 09/26/17 09/26/17 09/26/17 02:24 08:06 08:16 Temperature 98.3 F Pulse Rate 64 Respiratory 16 16 Rate Blood Pressure 132/68 O2 Sat by Pulse 98 100 98 Oximetry 09/26/17 09/26/17 09/26/17 08:31 09:00 10:47 Temperature Pulse Rate Respiratory 16 Rate Blood Pressure 113/49 O2 Sat by Pulse 100 97 Oximetry ED Medical Decision Making - Lab Data Result diagrams: 09/26/17 03:44 09/26/17 03:44 Vital Signs 09/26/17 09/26/17 09/26/17 02:24 08:06 08:16 Temperature 98.3 F Pulse Rate 64 Respiratory 16 16 Rate Blood Pressure 132/68 O2 Sat by Pulse 98 100 98 Oximetry 09/26/17 09/26/17 09/26/17 08:31 09:00 10:47 Temperature Pulse Rate Respiratory 16 Rate Blood Pressure 113/49 O2 Sat by Pulse 100 97 Oximetry Lab Results 09/26/17 09/26/17 09/26/17 Range/Units 03:44 03:44 03:44 WBC 8.8 (4.5-11.0) K/mm3 RBC 4.25 (3.65-5.03) M/mm3 Hgb 11.7 (10.1-14.3) gm/dl Hct 35.3 (30.3-42.9) % MCV 83 (79-97) fl MCH 28 (28-32) pg MCHC 33 (30-34) % RDW 15.1 (13.2-15.2) % Plt Count 373 (140-440) K/mm3 Lymph % (Auto) 25.7 (13.4-35.0) % [place] % (Auto) 6.9 (0.0-7.3) % Eos % (Auto) 1.0 (0.0-4.3) % Baso % (Auto) 0.2 (0.0-1.8) % Lymph # 2.3 (1.2-5.4) K/mm3 [place] # 0.6 (0.0-0.8) K/mm3 Eos # 0.1 (0.0-0.4) K/mm3 Baso # 0.0 (0.0-0.1) K/mm3 Seg Neutrophils % 66.2 (40.0-70.0) % Seg Neutrophils # 5.9 (1.8-7.7) K/mm3 Sodium 138 (137-145) mmol/L Potassium 4.4 (3.6-5.0) mmol/L Chloride 100.4 (98-107) mmol/L Carbon Dioxide 24 (22-30) mmol/L Anion Gap 18 mmol/L BUN 6 L (7-17) mg/dL Creatinine 0.6 L (0.7-1.2) mg/dL Estimated GFR > 60 ml/min BUN/Creatinine Ratio 10 % Glucose 98 (65-100) mg/dL Calcium 9.3 (8.4-10.2) mg/dL Total Bilirubin 0.20 (0.1-1.2) mg/dL AST 15 (5-40) units/L ALT 10 (7-56) units/L Alkaline Phosphatase 57 (35-129) units/L Total Protein 7.0 (6.3-8.2) g/dL Albumin 3.8 L (3.9-5) g/dL Albumin/Globulin Ratio 1.2 % HCG, Quant 95163 H (0-4) mIU/mL Urine Color (Yellow) Urine Turbidity (Clear) Urine pH (5.0-7.0) Ur Specific [place] (1.003-1.030) Urine Protein (Negative) mg/dL Urine Glucose (UA) (Negative) mg/dL Urine Ketones (Negative) mg/dL Urine Blood (Negative) Urine Nitrite (Negative) Urine Bilirubin (Negative) Urine Urobilinogen (<2.0) mg/dL Ur Leukocyte Esterase (Negative) Urine WBC (Auto) (0.0-6.0) /HPF Urine RBC (Auto) (0.0-6.0) /HPF U Epithel Cells (Auto) (0-13.0) /HPF Urine Bacteria (Auto) (Negative) /HPF Urine Mucus /HPF 09/26/17 Range/Units 09:29 WBC (4.5-11.0) K/mm3 RBC (3.65-5.03) M/mm3 Hgb (10.1-14.3) gm/dl Hct (30.3-42.9) % MCV (79-97) fl MCH (28-32) pg MCHC (30-34) % RDW (13.2-15.2) % Plt Count (140-440) K/mm3 Lymph % (Auto) (13.4-35.0) % [place] % (Auto) (0.0-7.3) % Eos % (Auto) (0.0-4.3) % Baso % (Auto) (0.0-1.8) % Lymph # (1.2-5.4) K/mm3 [place] # (0.0-0.8) K/mm3 Eos # (0.0-0.4) K/mm3 Baso # (0.0-0.1) K/mm3 Seg Neutrophils % (40.0-70.0) % Seg Neutrophils # (1.8-7.7) K/mm3 Sodium (137-145) mmol/L Potassium (3.6-5.0) mmol/L Chloride (98-107) mmol/L Carbon Dioxide (22-30) mmol/L Anion Gap mmol/L BUN (7-17) mg/dL Creatinine (0.7-1.2) mg/dL Estimated GFR ml/min BUN/Creatinine Ratio % Glucose (65-100) mg/dL Calcium (8.4-10.2) mg/dL Total Bilirubin (0.1-1.2) mg/dL AST (5-40) units/L ALT (7-56) units/L Alkaline Phosphatase (35-129) units/L Total Protein (6.3-8.2) g/dL Albumin (3.9-5) g/dL Albumin/Globulin Ratio % HCG, Quant (0-4) mIU/mL Urine Color Yellow (Yellow) Urine Turbidity Clear (Clear) Urine pH 7.0 (5.0-7.0) Ur Specific [place] 1.006 (1.003-1.030) Urine Protein <15 mg/dl (Negative) mg/dL Urine Glucose (UA) Neg (Negative) mg/dL Urine Ketones Neg (Negative) mg/dL Urine Blood Neg (Negative) Urine Nitrite Neg (Negative) Urine Bilirubin Neg (Negative) Urine Urobilinogen < 2.0 (<2.0) mg/dL Ur Leukocyte Esterase Neg (Negative) Urine WBC (Auto) 3.0 (0.0-6.0) /HPF Urine RBC (Auto) 2.0 (0.0-6.0) /HPF U Epithel Cells (Auto) 1.0 (0-13.0) /HPF Urine Bacteria (Auto) 2+ (Negative) /HPF Urine Mucus Few /HPF - Radiology Data Radiology results: report reviewed, image reviewed Patient's prior ultrasound report and images were reviewed from 09/18/2017. My bedside ultrasound confirms intrauterine with heart rate appreciated. - Medical Decision Making Differential diagnosis, including but not limited to: Nausea and vomiting of , gastritis, hyperemesis Assessment and plan: 37-year-old female with resolved nausea and vomiting of . She is afebrile with reassuring vital signs and has no abdominal tenderness, rebound, guarding. When I walk into the room to examine the patient 's sleeping and not actively vomiting. The patient is tolerating liquid feeds without difficulty in the emergency room. The patient will be discharged with appropriate nausea medication, she is given diet modification instructions, a Importance of initiating outpatient care. Critical care attestation.: If time is entered above; I have spent that time in minutes in the direct care of this critically ill patient, excluding procedure time. ED Disposition Clinical Impression: Nausea and vomiting during Disposition: DC-01 TO HOME OR SELFCARE Is pt being admited?: No Does the pt Need Aspirin: No Condition: Good Instructions: Hyperemesis Gravidarum (ED) Additional Instructions: Avoid consumption of heavy, spicy foods. Avoid consumption of Motrin, ibuprofen , Naprosyn, Aleve, alcohol. Follow up as soon as possible to start care. Not starting care could result in defects and disability to the unborn fetus, and is also potentially dangerous to the mother. Take nausea medication, vitamins as directed. Return to the ER right away with new pain, worsening pain, migration of pain, fevers, chills, lethargy, irritability, projectile vomiting, change in mental status, confusion, inability to tolerate liquid feeds. Referrals: PRIMARY CAREMD [Primary Care Provider] - 3-5 Days [facility] [Provider Group] - 3-5 Days [facility] [Provider Group] - 3-5 Days [facility] [Provider Group] - 3-5 Days
== END 2017-09-26 12:00 | disposition home or self-care (01) ==
LOC: ED 01:34
DX: O21.9 Vomiting of pregnancy, unspecified (principal); O26.891 Other specified pregnancy related conditions, first trimester; R10.9 Unspecified abdominal pain; Z3A.08 8 weeks gestation of pregnancy
CPT/HCPCS: 36415; 80053; 81001; 84702; 85025; 99284; Q0162

== ENCOUNTER 2017-10-22 00:37 | Emergency (ER) | payer MEDICAID | END 2017-10-22 00:45 | disposition left against medical advice (07) | LOC: ED 00:37 | DX: R11.10 Vomiting, unspecified (principal); Z53.21 Procedure and treatment not carried out due to patient leaving prior to being seen by health care provider ==

== ENCOUNTER 2017-10-31 13:30 | Emergency (ER) | payer MEDICAID ==
[2017-10-31] MEDS ORDERED: NACL 0.9% 1000 ML 1,000 ML IV ONE (16:28)
[2017-10-31] MEDS ORDERED: REGLAN IV ONE (16:29)
--- NOTE | 2017-10-31 16:31 | Emergency Department Report ---
Blank Doc - Documentation Documentation: Patient is a 37-year-old female who is approximately 3 months who is complaining of nausea vomiting. Patient states she is unable to keep anything down and is feeling weak. 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 Patient also states she is vomiting she has some urinary incontinence as well. Patient's abdomen is soft and nontender on focused physical exam. His recent treatment room to get IV fluids and nausea medicines.
[2017-10-31] MEDS ORDERED: D5NS 1,000 ML IV SCH (17:00)
--- NOTE | 2017-10-31 18:14 | Emergency Department Report ---
ED HPI - General Chief complaint: Nausea/Vomiting/Diarrhea Stated complaint: STOMACH PAIN,VOMITING,3MONTHS Time Seen by Provider: 10/31/17 16:24 Source: patient Mode of arrival: Ambulatory Limitations: No Limitations - History of Present Illness Initial comments: This is a 37-year-old female nontoxic, well nourished in appearance, no acute signs of distress presents to the ED with c/o of nausea and vomiting. Patient stated she is about 3 months . Patient staetd she does follow- up with an MUSIC ARTIST and has been on medication for nausea vomiting with no relief. PAtient is uncertain which medication. Patient also stated has some incontinence only during vomiting. Patient denies any pelvic pain. Patient denies any vaginal discharge or vaginal bleeding. Patient denies any back pain. Patient denies any abdominal pain, chest pain, short of breath, fever, chills, headache, stiff neck, numbness or tingling. Patient denies any diarrhea or constipation. Patient denies any recent travels. Patient denies any drug allergies significant past medical history. MD Complaint: other (nausea vomiting) Radiation: none Severity scale (0 -10): 0 Improves with: none Worsens with: none Associated symptoms: nausea/vomiting. denies: vaginal bleeding, vaginal discharge, abdominal pain, dysuria, headache, vision changes, malaise, dysparuenia, rash, seizure, shortness of breath, syncope, weakness Vaginal bleeding: none :: Yes Number of weeks : 12 Pre- care: followed by OB - Related Data Previous Rx's Medication Instructions Recorded Last Taken Type Docusate Sodium [Colace] 100 mg PO BID PRN #20 capsule 05/23/17 Unknown Rx Magnesium Citrate [Citrate of 300 ml PO NOW #1 bottle 05/23/17 Unknown Rx Magnesia] Ciprofloxacin HCl [Ciprofloxacin 500 mg PO Q12H #14 tab 07/18/17 Unknown Rx TAB] Famotidine [Pepcid] 20 mg PO BID #14 tablet 09/01/17 Unknown Rx Vit Calc,Iron,Folic 1 each PO QDAY #30 tablet 09/02/17 Unknown Rx [ Vitamins] Nitrofurantoin [place]/M-Cryst 100 mg PO Q12HR #14 capsule 09/03/17 Unknown Rx [Macrobid CAP] Nitrofurantoin [place]/M-Cryst 100 mg PO Q12HR #14 capsule 09/18/17 Unknown Rx [Macrobid CAP] Shanel Root [Shanel] 250 mg PO QID PRN #30 capsule 09/26/17 Unknown Rx Vit Calc,Iron,Folic 1 each PO QDAY #30 tablet 09/26/17 Unknown Rx [ Vitamins] Doxylamine Succinate/Vit B6 1 each PO QHS PRN #30 tablet. 10/25/17 Unknown Rx [Eligio [place] 10-10 mg Tablet] Pnv No.95/Ferrous Fum/Folic AC 1 each PO QDAY #31 tablet 10/25/17 Unknown Rx [ Vitamin Tablet] Metoclopramide [Reglan] 10 mg PO TID PRN #60 tab 10/31/17 Unknown Rx Allergies Allergy/AdvReac Type Severity Reaction Status Date / Time No Known Allergies Allergy Unverified 05/23/17 05:39 ED Review of Systems ROS: Stated complaint: STOMACH PAIN,VOMITING,3MONTHS Other details as noted in HPI Constitutional: denies: chills, fever Eyes: denies: eye pain, eye discharge, vision change ENT: denies: ear pain, throat pain Respiratory: denies: cough, shortness of breath, wheezing Cardiovascular: denies: chest pain, palpitations Endocrine: no symptoms reported Gastrointestinal: nausea, vomiting. denies: abdominal pain, diarrhea Genitourinary: denies: urgency, dysuria, discharge Musculoskeletal: denies: back pain, joint swelling, arthralgia Skin: denies: rash, lesions Neurological: denies: headache, weakness, paresthesias Psychiatric: denies: anxiety, depression Hematological/Lymphatic: denies: easy bleeding, easy bruising ED Past Medical Hx - Past Medical History Hx Psychiatric Treatment: Yes (Anxiety,depression) - Surgical History Additional Surgical History: x1 - Social History Smoking Status: Never Smoker Substance Use Type: None - Medications Home Medications: Home Medications Medication Instructions Recorded Confirmed Last Taken Type Docusate Sodium [Colace] 100 mg PO BID PRN #20 capsule 05/23/17 09/03/17 Unknown Rx Magnesium Citrate [Citrate of 300 ml PO NOW #1 bottle 05/23/17 09/03/17 Unknown Rx Magnesia] Ciprofloxacin HCl [Ciprofloxacin 500 mg PO Q12H #14 tab 07/18/17 09/03/17 Unknown Rx TAB] Famotidine [Pepcid] 20 mg PO BID #14 tablet 09/01/17 09/03/17 Unknown Rx Vit Calc,Iron,Folic 1 each PO QDAY #30 tablet 09/02/17 Unknown Rx [ Vitamins] Nitrofurantoin [place]/M-Cryst 100 mg PO Q12HR #14 capsule 09/03/17 Unknown Rx [Macrobid CAP] Nitrofurantoin [place]/M-Cryst 100 mg PO Q12HR #14 capsule 09/18/17 Unknown Rx [Macrobid CAP] Shanel Root [Shanel] 250 mg PO QID PRN #30 capsule 09/26/17 Unknown Rx Vit Calc,Iron,Folic 1 each PO QDAY #30 tablet 09/26/17 Unknown Rx [ Vitamins] Doxylamine Succinate/Vit B6 1 each PO QHS PRN #30 tablet.dr 10/25/17 Unknown Rx [Diclegis Dr 10-10 mg Tablet] Pnv No.95/Ferrous Fum/Folic AC 1 each PO QDAY #31 tablet 10/25/17 Unknown Rx [ Vitamin Tablet] Metoclopramide [Reglan] 10 mg PO TID PRN #60 tab 10/31/17 Unknown Rx ED Physical Exam - General Limitations: No Limitations General appearance: alert, in no apparent distress - Head Head exam: Present: atraumatic, normocephalic - Eye Eye exam: Present: normal appearance Pupils: Present: normal accommodation - ENT ENT exam: Present: normal exam, mucous membranes moist - Neck Neck exam: Present: normal inspection, full ROM. Absent: tenderness, meningismus, lymphadenopathy - Respiratory Respiratory exam: Present: normal lung sounds bilaterally. Absent: respiratory distress, wheezes, rales, rhonchi, stridor, chest wall tenderness, accessory muscle use, decreased breath sounds, prolonged expiratory - Cardiovascular Cardiovascular Exam: Present: regular rate, normal rhythm, normal heart sounds. Absent: bradycardia, tachycardia, irregular rhythm, systolic murmur, diastolic murmur, rubs, gallop - GI/Abdominal GI/Abdominal exam: Present: soft, normal bowel sounds. Absent: distended, tenderness, guarding, rebound, rigid, diminished bowel sounds - Extremities Exam Extremities exam: Present: normal inspection, full ROM, normal capillary refill. Absent: tenderness - Back Exam Back exam: Present: normal inspection, full ROM. Absent: tenderness, CVA tenderness (R), CVA tenderness (L), muscle spasm, paraspinal tenderness, vertebral tenderness, rash noted - Neurological Exam Neurological exam: Present: alert, oriented X3, normal gait - Psychiatric Psychiatric exam: Present: normal affect, normal mood - Skin Skin exam: Present: warm, dry, intact, normal color. Absent: rash ED Course Vital Signs 10/31/17 10/31/17 13:35 18:58 Temperature 99 F 98.3 F Pulse Rate 75 92 H Respiratory 18 20 Rate Blood Pressure 136/65 Blood Pressure 135/79 [Left] O2 Sat by Pulse 98 98 Oximetry - Reevaluation(s) Reevaluation #1: 10/31/17 18:12 Patient is speaking in full sentences with no signs of distress noted. - Consultations Consultation #1: 10/31/17 18:12 Patient has been consulted with Dr. Quiroz about patient history, physical exam , and labs and examined and screened patient and agrees to ED plan of care and discharge plan of care. ED Medical Decision Making - Medical Decision Making This is a 37-year-old female that presents with hyperemesis gravidarum. Patient is stable and was examined by me and Dr. Quiroz. There is no abdominal tenderness. UA obtained. Patient is notified of the report with no questions noted by the patient. Vital signs are stable prior to discharge. Patient received Zofran and 1L Normal saline in the ED which patient stated symptoms has resolved and subsided. A by mouth challenge has been obtained and patient tolerated well with no nausea vomiting. Patient was also instructed to Follow- up with a MUSIC ARTIST doctor in 3-5 days or if symptoms worsen and continue return to emergency room as soon as possible. At time of discharge, the patient does not seem toxic or ill in appearance. No acute signs of distress noted. Patient agrees to discharge treatment plan of care. No further questions noted by the patient. Critical care attestation.: If time is entered above; I have spent that time in minutes in the direct care of this critically ill patient, excluding procedure time. ED Disposition Clinical Impression: Hyperemesis gravidarum Disposition: DC-01 TO HOME OR SELFCARE Is pt being admited?: No Does the pt Need Aspirin: No Condition: Stable Instructions: Hyperemesis Gravidarum (ED) Additional Instructions: Follow-up with a MUSIC ARTIST doctor in 3-5 days or if symptoms worsen and continue return to emergency room as soon as possible. Prescriptions: Metoclopramide [Reglan] 10 mg PO TID PRN #60 tab PRN Reason: Nausea Referrals: PRIMARY CARE, [Primary Care Provider] - 3-5 Days TRUNG BRAUN MD [Staff Physician] - 3-5 Days [facility] [Provider Group] - 3-5 Days Forms: Work/School Release Form(ED)
[2017-10-31 18:59] VITALS: BP 135/79
[2017-10-31 19:41] LABS: Bacteria,Urine 2+ /HPF (Negative); Bilirubin,Urine NEG (Negative); Blood,Urine NEG (Negative); Color,Urine Yellow (Yellow); Mucus,Urine 1+ /HPF; Protein,Urine <15 mg/dL mg/dL (Negative); Urobilinogen,Urine < 2.0 mg/dL (<2.0)
== END 2017-10-31 20:00 | disposition home or self-care (01) ==
LOC: ED 13:30
DX: O21.0 Mild hyperemesis gravidarum (principal); Z3A.12 12 weeks gestation of pregnancy
CPT/HCPCS: 81001; 96361; 96374; 99283; J2765; J7030; J7042

== ENCOUNTER 2017-11-08 18:04 | Emergency (ER) | payer MEDICAID ==
[2017-11-08 19:20] LABS: Hematocrit 37.3 % (30.3-42.9); Hemoglobin 12.3 gm/dl (10.1-14.3); Mean Corpuscular HGB Conc 33 % (30-34); Mean Corpuscular Hemoglobin 28 pg (28-32); Mean Corpuscular Volume 85 fl (79-97); Platelet Count 416 K/mm3 (140-440); Red Blood Count 4.37 M/mm3 (3.65-5.03); Red Cell Distribution Width 14.5 % (13.2-15.2)
[2017-11-08 19:40] LABS: BUN/Creatinine Ratio 18; Blood Urea Nitrogen 9 mg/dL (7-17); Calcium 9.9 mg/dL (8.4-10.2); Hemolysis Index 5
[2017-11-08 20:26] LABS: Basophils % (Manual) 0 % (0.0-1.8); Platelet Estimate Consistent w Auto; RBC Morphology Normal; Total Cells Counted 100
--- NOTE | 2017-11-08 21:08 | Emergency Department Report ---
ED Psych HPI - General Chief Complaint: Psych Stated Complaint: SUICIDAL Time Seen by Provider: 11/08/17 20:50 Source: patient, EMS Mode of arrival: Ambulatory - History of Present Illness Initial Comments: Patient is a 37-year-old female presents to emergency room for evaluation and medical clearance for homicidal ideations. Patient states she was discharged from with today and was placed in an outpatient program. Patient states she did not like the outpatient program so she went back to [facility] to be readmitted. Her which states that she has been cleared and needs to go back to the outpatient program and the patient became violent and started yelling threats toward the staff. The staff called EMS and the police and the patient was brought here for medical evaluation and placed on 1013 at [facility]. Patient states she is homicidal against staff over with. Patient states she is having thoughts of hurting them and would like to kill them. Patient denies suicidal ideations. Patient denies audiovisual hallucinations. Patient states she just wants to get some help and doesn't understand why referral was treating herself bad. Patient states she is 4 months . Patient denies dominant pain or vaginal bleeding. Patient denies any pelvic pain. Patient denies any physical complaints. Patient denies chest pain shortness of breath. Patient denies fever. -: Sudden Associated Psychiatric Symptoms: homicidal ideation History of same: Yes Quality: constant Improves With: therapy Worsens With: none Context: significant life stressor Associated Symptoms: denies: confusion, headache, shortness of breath, nausea, vomiting, syncope, insomnia Treatments Prior to Arrival: placed on mental he If Self Harm: has plan - Related Data Previous Rx's Medication Instructions Recorded Last Taken Type Docusate Sodium [Colace] 100 mg PO BID PRN #20 capsule 05/23/17 Unknown Rx Magnesium Citrate [Citrate of 300 ml PO NOW #1 bottle 05/23/17 Unknown Rx Magnesia] Ciprofloxacin HCl [Ciprofloxacin 500 mg PO Q12H #14 tab 07/18/17 Unknown Rx TAB] Famotidine [Pepcid] 20 mg PO BID #14 tablet 09/01/17 Unknown Rx Vit Calc,Iron,Folic 1 each PO QDAY #30 tablet 09/02/17 Unknown Rx [ Vitamins] Nitrofurantoin [place]/M-Cryst 100 mg PO Q12HR #14 capsule 09/03/17 Unknown Rx [Macrobid CAP] Nitrofurantoin [place]/M-Cryst 100 mg PO Q12HR #14 capsule 09/18/17 Unknown Rx [Macrobid CAP] Shanel Root [Shanel] 250 mg PO QID PRN #30 capsule 09/26/17 Unknown Rx Vit Calc,Iron,Folic 1 each PO QDAY #30 tablet 09/26/17 Unknown Rx [ Vitamins] Doxylamine Succinate/Vit B6 1 each PO QHS PRN #30 tablet. 10/25/17 Unknown Rx [Diclegis Dr 10-10 mg Tablet] Pnv No.95/Ferrous Fum/Folic AC 1 each PO QDAY #31 tablet 10/25/17 Unknown Rx [ Vitamin Tablet] Metoclopramide [Reglan] 10 mg PO TID PRN #60 tab 10/31/17 Unknown Rx Allergies Allergy/AdvReac Type Severity Reaction Status Date / Time No Known Allergies Allergy Unverified 05/23/17 05:39 ED Review of Systems ROS: Stated complaint: SUICIDAL Other details as noted in HPI Constitutional: denies: chills, fever Eyes: denies: eye pain, eye discharge, vision change ENT: denies: ear pain, throat pain Respiratory: denies: cough, shortness of breath, wheezing Cardiovascular: denies: chest pain, palpitations Endocrine: no symptoms reported Gastrointestinal: denies: abdominal pain, nausea, diarrhea Genitourinary: denies: urgency, dysuria, discharge Musculoskeletal: denies: back pain, joint swelling, arthralgia Skin: denies: rash, lesions Neurological: denies: headache, weakness, paresthesias Psychiatric: anxiety, depression, homicidal thoughts. denies: auditory hallucinations, visual hallucinations, suicidal thoughts Hematological/Lymphatic: denies: easy bleeding, easy bruising ED Past Medical Hx - Past Medical History Previous Medical History?: Yes Hx Psychiatric Treatment: Yes (Anxiety,depression) - Surgical History Past Surgical History?: Yes Additional Surgical History: x1 - Family History Family history: no significant - Social History Smoking Status: Never Smoker Substance Use Type: None - Medications Home Medications: Home Medications Medication Instructions Recorded Confirmed Last Taken Type Docusate Sodium [Colace] 100 mg PO BID PRN #20 capsule 05/23/17 09/03/17 Unknown Rx Magnesium Citrate [Citrate of 300 ml PO NOW #1 bottle 05/23/17 09/03/17 Unknown Rx Magnesia] Ciprofloxacin HCl [Ciprofloxacin 500 mg PO Q12H #14 tab 07/18/17 09/03/17 Unknown Rx TAB] Famotidine [Pepcid] 20 mg PO BID #14 tablet 09/01/17 09/03/17 Unknown Rx Vit Calc,Iron,Folic 1 each PO QDAY #30 tablet 09/02/17 Unknown Rx [ Vitamins] Nitrofurantoin [place]/M-Cryst 100 mg PO Q12HR #14 capsule 09/03/17 Unknown Rx [Macrobid CAP] Nitrofurantoin [place]/M-Cryst 100 mg PO Q12HR #14 capsule 09/18/17 Unknown Rx [Macrobid CAP] Shanel Root [Shanel] 250 mg PO QID PRN #30 capsule 09/26/17 Unknown Rx Vit Calc,Iron,Folic 1 each PO QDAY #30 tablet 09/26/17 Unknown Rx [ Vitamins] Doxylamine Succinate/Vit B6 1 each PO QHS PRN #30 tablet. 10/25/17 Unknown Rx [Eligio [place] 10-10 mg Tablet] Pnv No.95/Ferrous Fum/Folic AC 1 each PO QDAY #31 tablet 10/25/17 Unknown Rx [ Vitamin Tablet] Metoclopramide [Reglan] 10 mg PO TID PRN #60 tab 10/31/17 Unknown Rx ED Physical Exam - General Limitations: No Limitations General appearance: alert, in no apparent distress - Head Head exam: Present: atraumatic, normocephalic - Eye Eye exam: Present: normal appearance - ENT ENT exam: Present: mucous membranes moist - Neck Neck exam: Present: normal inspection - Respiratory Respiratory exam: Present: normal lung sounds bilaterally. Absent: respiratory distress - Cardiovascular Cardiovascular Exam: Present: regular rate, normal rhythm. Absent: systolic murmur, diastolic murmur, rubs, gallop - GI/Abdominal GI/Abdominal exam: Present: soft, normal bowel sounds. Absent: distended, tenderness - Extremities Exam Extremities exam: Present: normal inspection - Back Exam Back exam: Present: normal inspection - Neurological Exam Neurological exam: Present: alert, oriented X3 - Psychiatric Psychiatric exam: Present: depressed, agitated, flat affect, homicidal ideation - Skin Skin exam: Present: warm, dry, intact, normal color. Absent: rash ED Course Vital Signs 11/08/17 11/08/17 18:42 23:58 Temperature 99.4 F 98.1 F Pulse Rate 90 90 Respiratory 20 14 Rate Blood Pressure 143/67 Blood Pressure 116/65 [Left] O2 Sat by Pulse 98 98 Oximetry - Reevaluation(s) Reevaluation #1: Patient was evaluated and is deemed in need of a 1013 and mental health evaluation. Patient resides and 13 for homicidal ideations. 11/08/17 21:09 Patient is medically cleared. Patient is 1013 from her wound reviewed. A 1013 for a root states patient was suicidal ideation with a plan. Patient was sent here by her wound for medical clearance due to being 11/08/17 21:37 She is ready for transport back to [facility] 11/08/17 21:37 She is medically cleared and will remain on a 1013 until she is accepted into the appropriate psychiatric facility 11/08/17 21:40 Reevaluation #2: Patient's labs are unremarkable except for a positive UA. Findings are consistent with asymptomatic pyuria. Patient patient does not require antibiotics. 11/09/17 01:09 Mental health has assessed the patient. Patient will remain on a 1013 until patient is accepted into appropriate psychiatric facility. 11/09/17 01:10 ED Medical Decision Making - Lab Data Result diagrams: 11/08/17 18:55 11/08/17 18:55 - Medical Decision Making She is 37-year-old female was presents to emergency room for medical clearance. Patient seen today at [facility] and was sent over here for medical clearance and was placed on a 1013 at [facility] due to suicidal ideations. Patient here was placed on 1013 for homicidal ideations due to patient stating she wants to kill hurt the staff at [facility] - Differential Diagnosis si. hi, depression. anx Critical care attestation.: If time is entered above; I have spent that time in minutes in the direct care of this critically ill patient, excluding procedure time. ED Disposition Clinical Impression: Homicidal ideations, , Suicidal ideation Disposition: DC/TX-65 PSY HOSP/PSY UNIT Is pt being admited?: No Does the pt Need Aspirin: No Condition: Stable Additional Instructions: Patient is medically cleared and ready for transport to appropriate psychiatric facility Referrals: PRIMARY CAREMD [Primary Care Provider] - 3-5 Days Time of Disposition: 01:10
[2017-11-09 00:01] LABS: Bacteria,Urine 2+ /HPF (Negative); Bilirubin,Urine NEG (Negative); Blood,Urine NEG (Negative); Color,Urine Yellow (Yellow); Mucus,Urine 2+ /HPF; Protein,Urine <15 mg/dL mg/dL (Negative); Urobilinogen,Urine < 2.0 mg/dL (<2.0)
[2017-11-09 00:03] LABS: Amphetamine Screen,Urine PRESUMPTIVE NEGATIVE; Benzodiazepines Screen,Urine PRESUMPTIVE NEGATIVE; Cannabinoid Screen,Urine PRESUMPTIVE NEGATIVE; Cocaine Screen,Urine PRESUMPTIVE NEGATIVE; Methadone Screen,Urine PRESUMPTIVE NEGATIVE; Opiate Screen,Urine PRESUMPTIVE NEGATIVE
--- NOTE | 2017-11-09 07:57 | Ultrasound Report ---
OB ULTRASOUND History unable to hear heart tone on Doppler. Technique: Transabdominal ultrasound with Doppler interrogation. Gestation: Single Position: Breech Amniotic Fluid: Within normal limits Placenta: Posterior Placental Grade: 0 Heart Rate: 153 BPM Cervical length: 4.0 cm (Normal > 3 cm) BPD: 2.5 cm = 14 w 3 d HC: 9.3 cm = 14 w 2 d AC: 8.1 cm = 14 w 3 d FL: 1.2 cm = 13 w 4 d HC/AC Ratio: 1.16 Cephalic Index: 83.8 LMP: 08/03/17 Clinical age = 14 w 0 d EDC: 05/10/18 US Gest. Age = 14 w 1 d EDC: 05/09/17 IMPRESSION: Viable, single intrauterine as described.
--- NOTE | 2017-11-09 16:47 | Consultation ---
History of Present Illness - Reason for Consult Consult date: 11/09/17 Reason for consult: Mental Health Evaluation Requesting physician: CHRISTIE REDDING III - Chief Complaint Chief complaint: "I will be okay" - History of Present Psychiatric Illness 37-year-old AA female presents to emergency room for evaluation and medical clearance for homicidal ideations. Today the patient is calm during the assessment. She stated that she do not like the way [facility] discharged her yesterday. She stated that they were suppose to send her to a certain program and they did not. She acknowledged confronting the staff about their action. She stated that she was upset and angry during while talking with the staff. She stated that this ordeal has caused her to question her life. She would not confirm or deny SI's when asked. She stated, "All I want is help." She denies HI 's and AVH's. She denies erratic sleep and a poor appetite. She denies any manic episodes in the past when asked. She denies recreational drug use and alcohol consumption (etoh). Medications and Allergies Allergies Allergy/AdvReac Type Severity Reaction Status Date / Time No Known Allergies Allergy Unverified 05/23/17 05:39 Home Medications Medication Instructions Recorded Confirmed Last Taken Type Docusate Sodium [Colace] 100 mg PO BID PRN #20 capsule 05/23/17 09/03/17 Unknown Rx Magnesium Citrate [Citrate of 300 ml PO NOW #1 bottle 05/23/17 09/03/17 Unknown Rx Magnesia] Ciprofloxacin HCl [Ciprofloxacin 500 mg PO Q12H #14 tab 07/18/17 09/03/17 Unknown Rx TAB] Famotidine [Pepcid] 20 mg PO BID #14 tablet 09/01/17 09/03/17 Unknown Rx Vit Calc,Iron,Folic 1 each PO QDAY #30 tablet 09/02/17 Unknown Rx [ Vitamins] Nitrofurantoin [place]/M-Cryst 100 mg PO Q12HR #14 capsule 09/03/17 Unknown Rx [Macrobid CAP] Nitrofurantoin [place]/M-Cryst 100 mg PO Q12HR #14 capsule 09/18/17 Unknown Rx [Macrobid CAP] Shanel Root [Shanel] 250 mg PO QID PRN #30 capsule 09/26/17 Unknown Rx Vit Calc,Iron,Folic 1 each PO QDAY #30 tablet 09/26/17 Unknown Rx [ Vitamins] Doxylamine Succinate/Vit B6 1 each PO QHS PRN #30 tablet. 10/25/17 Unknown Rx [Eligio [place]ham 10-10 mg Tablet] Pnv No.95/Ferrous Fum/Folic AC 1 each PO QDAY #31 tablet 10/25/17 Unknown Rx [ Vitamin Tablet] Metoclopramide [Reglan] 10 mg PO TID PRN #60 tab 10/31/17 Unknown Rx Past psychiatric history - Past Medical History Past Medical History: other (Currently ) Past Surgical History: No surgical history - past Psychiatric treatment and history psychiatric treatment history: Several inpatient psy services. Denies a fam psy hx. - Social History Social history: lives with family Mental Status Exam - Vital signs Last Vital Signs Temp 98.1 F 11/08/17 23:58 Pulse 90 11/08/17 23:58 Resp 14 11/08/17 23:58 BP 116/65 11/08/17 23:58 Pulse Ox 98 11/08/17 23:58 - Exam Narrative exam: MSE: Appearance: calm Behavior: regular eye contact Speech: regular rate and tone Mood: dysphoric Affect: congruent to mood Thought Process: tangential Thought Content: denies HI's and AVH's, will not confirm or deny SI's Motor Activity: ambulatory Cognition: A/O x 3 Insight: variable Judgment: variable Results Result Diagrams: 11/08/17 18:55 11/08/17 18:55 Abnormal lab results 11/08/17 11/08/17 11/08/17 Range/Units 18:55 18:55 18:55 Seg Neuts % (Manual) (40.0-70.0) % Sodium 133 L (137-145) mmol/L Chloride 94.3 L (98-107) mmol/L Creatinine 0.5 L (0.7-1.2) mg/dL HCG, Quant (0-4) mIU/mL Urine WBC (Auto) (0.0-6.0) /HPF Salicylates < 0.3 L (2.8-20.0) mg/dL Acetaminophen < 5.0 L (10.0-30.0) ug/mL 11/08/17 11/08/17 11/08/17 Range/Units 18:55 18:55 23:34 Seg Neuts % (Manual) 72.0 H (40.0-70.0) % Sodium (137-145) mmol/L Chloride (98-107) mmol/L Creatinine (0.7-1.2) mg/dL HCG, Quant 41906 H (0-4) mIU/mL Urine WBC (Auto) 9.0 H (0.0-6.0) /HPF Salicylates (2.8-20.0) mg/dL Acetaminophen (10.0-30.0) ug/mL All other labs normal. Assessment and Plan Assessment and plan: Impression: Unspecified Mood DO. Today the patient is calm during the assessment. UDS is negative. The patient is . DDx: R/O MDD, R/O Bipolar DO Recommendation/Plan: Reevaluate 1013 in 24 hours to determine proper dispo.
[2017-11-10 15:37] VITALS: BP 105/52
--- NOTE | 2017-11-10 19:16 | Progress Note ---
Subjective - Reason for Consult Consult date: 11/10/17 Reason for consult: follow up - Chief Complaint Chief complaint: "My problem is I'm homeless and 4 months ." 37-year-old AA female presents to emergency room for evaluation and medical clearance for homicidal ideations. Today the patient is calm during the assessment. She stated that she did not like the way [facility] discharged her and states they did not want to take her because of her lack of insurance. She expressed concern about losing her baby if she admitted to mental health problems. Speech is pressured and thought process circumstantial. She states she was unsure how she should answer regarding if she has suicidal ideation. She reports trouble sleeping and poor appetite. Although, she is perseverative about obtaining ensure drinks. She denies recreational drug use and alcohol consumption (etoh). Narrative exam: MSE: Appearance: calm Behavior: regular eye contact Speech: regular rate and tone Mood: irritable Affect: congruent to mood Thought Process: circumstantial, tangential Thought Content:will not confirm or deny SI Motor Activity: ambulatory Cognition: A/O x 3 Insight: variable Judgment: variable Assessment and plan: Impression: Unspecified Mood DO. Today the patient is calm during the assessment. UDS is negative. The patient is at 14 weeks confirmed by ultrasound. DDx: R/O MDD, R/O Bipolar DO, mixed manic episode Recommendation/Plan: Continue 1013 and transfer to inpatient psychiatric facility for stabilization. Declines meds and will defer medication recommendations to inpatient facility. Mental Status Exam - Vital signs Last Vital Signs Temp 98.9 F 11/10/17 11:00 Pulse 92 H 11/10/17 11:00 Resp 18 11/10/17 11:00 BP 105/52 11/10/17 11:00 Pulse Ox 96 11/10/17 11:00
== END 2017-11-10 22:31 ==
LOC: ED 18:04
DX: O99.341 Other mental disorders complicating pregnancy, first trimester (principal); F32.9 Major depressive disorder, single episode, unspecified; F41.9 Anxiety disorder, unspecified; F39 Unspecified mood [affective] disorder; Z79.899 Other long term (current) drug therapy; Z3A.14 14 weeks gestation of pregnancy
CPT/HCPCS: 36415; 76805; 80048; 80307; 81001; 84702; 85007; 85025; 99285; G0480; 80320

== ENCOUNTER 2018-03-10 22:34 | Emergency (ER) | payer MEDICAID ==
[2018-03-10 23:08] LABS: Bacteria,Urine 2+ /HPF (Negative); Bilirubin,Urine NEG (Negative); Blood,Urine NEG (Negative); Color,Urine Yellow (Yellow); Mucus,Urine FEW /HPF; Protein,Urine <15 mg/dL mg/dL (Negative)
[2018-03-10 23:15] LABS: Amphetamine Screen,Urine PRESUMPTIVE NEGATIVE; Benzodiazepines Screen,Urine PRESUMPTIVE NEGATIVE; Cannabinoid Screen,Urine PRESUMPTIVE NEGATIVE; Cocaine Screen,Urine PRESUMPTIVE NEGATIVE; Methadone Screen,Urine PRESUMPTIVE NEGATIVE; Opiate Screen,Urine PRESUMPTIVE NEGATIVE
[2018-03-11 00:10] LABS: Basophils % (Auto) 0.2 % (0.0-1.8); Eosinophils % (Auto) 0.4 % (0.0-4.3); Hematocrit 28.6 % (30.3-42.9); Hemoglobin 9.2 gm/dl (10.1-14.3); Lymphocytes # (Auto) 1.8 K/mm3 (1.2-5.4); Lymphocytes % (Auto) 18.2 % (13.4-35.0); Mean Corpuscular HGB Conc 32 % (30-34); Mean Corpuscular Volume 81 fl (79-97); Monocytes # (Auto) 0.6 K/mm3 (0.0-0.8); Monocytes % (Auto) 6.1 % (0.0-7.3); Platelet Count 453 K/mm3 (140-440); Red Blood Count 3.54 M/mm3 (3.65-5.03); Red Cell Distribution Width 14.2 % (13.2-15.2)
--- NOTE | 2018-03-11 01:17 | Emergency Department Report ---
HPI - General Chief Complaint: Psych Time Seen by Provider: 03/11/18 01:05 - HPI HPI: Room 17 The patient is a 38-year-old female presenting with a chief complaint of depression/suicidal ideation. The patient states today she "went through some stuff" and began feeling anxious and depressed with suicidal ideation. Patient denies having a plan or making any active attempt at harming herself. Patient denies vaginal bleeding or abdominal pain. Patient is and states she is in her second trimester Location: Mental state Duration: One day Quality: Suicidal Severity: Severe Modifying factors: [see above] Context: [see above] Mode of transportation: [not driving] ED Past Medical Hx - Past Medical History Hx Psychiatric Treatment: Yes (Anxiety,depression,bipolar) - Surgical History Additional Surgical History: x1 - Family History Family history: no significant - Social History Smoking Status: Never Smoker Substance Use Type: None (denies illicit drug use) - Medications Home Medications: Home Medications Medication Instructions Recorded Confirmed Last Taken Type Magnesium Citrate [Citrate of 300 ml PO NOW #1 bottle 05/23/17 11/09/17 Unknown Rx Magnesia] Vit Calc,Iron,Folic 1 each PO QDAY #30 tablet 09/02/17 11/09/17 Unknown Rx [ Vitamins] Nitrofurantoin [place]/M-Cryst 100 mg PO Q12HR #14 capsule 09/03/17 11/09/17 Unknown Rx [Macrobid CAP] Nitrofurantoin [place]/M-Cryst 100 mg PO Q12HR #14 capsule 09/18/17 11/09/17 Unknown Rx [Macrobid CAP] Shanel Root [Shanel] 250 mg PO QID PRN #30 capsule 09/26/17 11/09/17 Unknown Rx Vit Calc,Iron,Folic 1 each PO QDAY #30 tablet 09/26/17 11/09/17 Unknown Rx [ Vitamins] Pnv No.95/Ferrous Fum/Folic AC 1 each PO QDAY #31 tablet 10/25/17 11/09/17 Unknown Rx [ Vitamin Tablet] Metoclopramide [Reglan] 10 mg PO TID PRN #60 tab 10/31/17 11/09/17 Unknown Rx Nitrofurantoin [place]yd/M-Cryst 100 mg PO BID #14 capsule 03/11/18 Unknown Rx [Macrobid 100 mg Capsule] ED Review of Systems ROS: Stated complaint: MH Other details as noted in HPI Constitutional: no symptoms reported Eyes: denies: eye pain ENT: denies: throat pain Respiratory: no symptoms reported Cardiovascular: denies: chest pain Endocrine: no symptoms reported Gastrointestinal: denies: abdominal pain Genitourinary: denies: abnormal menses Musculoskeletal: denies: back pain Neurological: denies: headache Psychiatric: depression, suicidal thoughts Physical Exam - Physical Exam Vital Signs: Vital Signs 03/10/18 22:38 Temperature 97.7 F Pulse Rate 116 H Respiratory 20 Rate Blood Pressure 149/59 O2 Sat by Pulse 97 Oximetry Physical Exam: GENERAL: The patient is well-developed well-nourished female lying on stretcher not appearing to be in acute distress. [] HEENT: Normocephalic. Atraumatic. Extraocular motions are intact. Patient has moist mucous membranes. NECK: Supple. Trachea midline CHEST/LUNGS: Clear to auscultation. There is no respiratory distress noted. HEART/CARDIOVASCULAR: Regular. There is no tachycardia. There is no gallop rub or murmur. ABDOMEN: Abdomen is soft, nontender. Patient has normal bowel sounds. The patient is gravid SKIN: There is no rash. There is no edema. There is no diaphoresis. NEURO: The patient is awake, alert, and oriented. The patient is cooperative. The patient has normal speech MUSCULOSKELETAL: There is no evidence of acute injury. ED Course Vital Signs 03/10/18 22:38 Temperature 97.7 F Pulse Rate 116 H Respiratory 20 Rate Blood Pressure 149/59 O2 Sat by Pulse 97 Oximetry - Reevaluation(s) Reevaluation #1: 03/11/18 02:38 Patient refused pelvic ultrasound. Nursing informed to obtain heart tones ED Medical Decision Making - Lab Data Result diagrams: 03/10/18 23:40 03/10/18 01:00 Laboratory Tests 03/10/18 03/10/18 03/10/18 01:00 22:48 22:48 WBC RBC Hgb Hct MCV MCH MCHC RDW Plt Count Lymph % (Auto) [place] % (Auto) Eos % (Auto) Baso % (Auto) Lymph # [place] # Eos # Baso # Seg Neutrophils % Seg Neutrophils # Sodium 138 Potassium 4.0 Chloride 101.5 Carbon Dioxide 22 Anion Gap 19 BUN 6 L Creatinine 0.5 L Estimated GFR > 60 BUN/Creatinine Ratio 12 Glucose 84 Calcium 9.0 HCG, Quant Urine Color Yellow Urine Turbidity Clear Urine pH 7.0 Ur Specific [place] 1.019 Urine Protein <15 mg/dl Urine Glucose (UA) Neg Urine Ketones Neg Urine Blood Neg Urine Nitrite Neg Urine Bilirubin Neg Urine Urobilinogen 2.0 Ur Leukocyte Esterase Sm Urine WBC (Auto) 34.0 H Urine RBC (Auto) 4.0 U Epithel Cells (Auto) 1.0 Urine Bacteria (Auto) 2+ Urine Mucus Few Salicylates Urine Opiates Screen Presumptive negative Urine Methadone Screen Presumptive negative Acetaminophen Ur Barbiturates Screen Presumptive negative Ur Phencyclidine Scrn Presumptive negative Ur Amphetamines Screen Presumptive negative U Benzodiazepines Scrn Presumptive negative Urine Cocaine Screen Presumptive negative U Marijuana (THC) Screen Presumptive negative Drugs of Abuse Note Disclamer Plasma/Serum Alcohol 03/10/18 03/10/18 03/10/18 23:40 23:40 23:40 WBC RBC Hgb Hct MCV MCH MCHC RDW Plt Count Lymph % (Auto) [place] % (Auto) Eos % (Auto) Baso % (Auto) Lymph # [place] # Eos # Baso # Seg Neutrophils % Seg Neutrophils # Sodium Potassium Chloride Carbon Dioxide Anion Gap BUN Creatinine Estimated GFR BUN/Creatinine Ratio Glucose Calcium HCG, Quant Urine Color Urine Turbidity Urine pH Ur Specific [place] Urine Protein Urine Glucose (UA) Urine Ketones Urine Blood Urine Nitrite Urine Bilirubin Urine Urobilinogen Ur Leukocyte Esterase Urine WBC (Auto) Urine RBC (Auto) U Epithel Cells (Auto) Urine Bacteria (Auto) Urine Mucus Salicylates < 0.3 L Urine Opiates Screen Urine Methadone Screen Acetaminophen < 5.0 L Ur Barbiturates Screen Ur Phencyclidine Scrn Ur Amphetamines Screen U Benzodiazepines Scrn Urine Cocaine Screen U Marijuana (THC) Screen Drugs of Abuse Note Plasma/Serum Alcohol < 0.01 03/10/18 03/10/18 23:40 23:40 WBC 10.1 RBC 3.54 L Hgb 9.2 L Hct 28.6 L MCV 81 MCH 26 L MCHC 32 RDW 14.2 Plt Count 453 H Lymph % (Auto) 18.2 [place] % (Auto) 6.1 Eos % (Auto) 0.4 Baso % (Auto) 0.2 Lymph # 1.8 [place] # 0.6 Eos # 0.0 Baso # 0.0 Seg Neutrophils % 75.1 H Seg Neutrophils # 7.6 Sodium Potassium Chloride Carbon Dioxide Anion Gap BUN Creatinine Estimated GFR BUN/Creatinine Ratio Glucose Calcium HCG, Quant 5431 H Urine Color Urine Turbidity Urine pH Ur Specific [place] Urine Protein Urine Glucose (UA) Urine Ketones Urine Blood Urine Nitrite Urine Bilirubin Urine Urobilinogen Ur Leukocyte Esterase Urine WBC (Auto) Urine RBC (Auto) U Epithel Cells (Auto) Urine Bacteria (Auto) Urine Mucus Salicylates Urine Opiates Screen Urine Methadone Screen Acetaminophen Ur Barbiturates Screen Ur Phencyclidine Scrn Ur Amphetamines Screen U Benzodiazepines Scrn Urine Cocaine Screen U Marijuana (THC) Screen Drugs of Abuse Note Plasma/Serum Alcohol - Differential Diagnosis suicidal ideation Critical care attestation.: If time is entered above; I have spent that time in minutes in the direct care of this critically ill patient, excluding procedure time. ED Disposition Clinical Impression: Suicidal ideation, UTI (urinary tract infection) Disposition: DC/TX-65 PSY HOSP/PSY UNIT Is pt being admited?: No Does the pt Need Aspirin: No Condition: Serious Prescriptions: Nitrofurantoin Monohyd/M-Cryst [Macrobid 100 mg Capsule] 100 mg PO BID #14 capsule Referrals: ANNETTA VILLAREAL [Other] - 3-5 Days Time of Disposition: 01:18 (awaiting acceptance)
[2018-03-11 01:50] LABS: BUN/Creatinine Ratio 12; Blood Urea Nitrogen 6 mg/dL (7-17); Hemolysis Index 0
[2018-03-11] MEDS: MACROBID PO SCH ×2 (02:35→11:36)
--- NOTE | 2018-03-11 11:10 | Consultation ---
History of Present Illness - Reason for Consult Consult date: 03/11/18 Reason for consult: Mental Health Evaluation Requesting physician: YANELY VELASCO - Chief Complaint Chief complaint: "I need some assistance" - History of Present Psychiatric Illness 38-year-old AA female presents to emergency room for psychiatric evaluation. This patient is known to me. Today the patient is calm and cooperative during the assessment. She stated that she need some assistance with outpatient psy services. Per the record, the patient endorsed SI's. She did acknowledged that she stated being suicidal when asked. She stated t hat she didn't "mean it." She is adamant that she is okay to be discharged. She denies SI/HI's and AVH's. She denies erratic sleep and a poor appetite. She denies any manic episodes. She d enies recreational drug use and alcohol consumption (etoh). Medications and Allergies Allergies Allergy/AdvReac Type Severity Reaction Status Date / Time No Known Allergies Allergy Verified 01/02/18 21:09 Home Medications Medication Instructions Recorded Confirmed Last Taken Type Magnesium Citrate [Citrate of 300 ml PO NOW #1 bottle 05/23/17 11/09/17 Unknown Rx Magnesia] Vit Calc,Iron,Folic 1 each PO QDAY #30 tablet 09/02/17 11/09/17 Unknown Rx [ Vitamins] Nitrofurantoin [place]/M-Cryst 100 mg PO Q12HR #14 capsule 09/03/17 11/09/17 Unknown Rx [Macrobid CAP] Nitrofurantoin [place]/M-Cryst 100 mg PO Q12HR #14 capsule 09/18/17 11/09/17 Unknown Rx [Macrobid CAP] Shanel Root [Shanel] 250 mg PO QID PRN #30 capsule 09/26/17 11/09/17 Unknown Rx Vit Calc,Iron,Folic 1 each PO QDAY #30 tablet 09/26/17 11/09/17 Unknown Rx [ Vitamins] Pnv No.95/Ferrous Fum/Folic AC 1 each PO QDAY #31 tablet 10/25/17 11/09/17 Unknown Rx [ Vitamin Tablet] Metoclopramide [Reglan] 10 mg PO TID PRN #60 tab 10/31/17 11/09/17 Unknown Rx Nitrofurantoin Monohyd/M-Cryst 100 mg PO BID #14 capsule 03/11/18 Unknown Rx [Macrobid 100 mg Capsule] Active Meds: Active Medications Nitrofurantoin Macrocrystals (Macrobid) 100 mg PO BID WILLIAN Stop: 03/14/18 02:00 Last Admin: 03/11/18 02:35 Dose: 100 mg Documented by: Past psychiatric history - Past Medical History Past Medical History: other (Currently ) Past Surgical History: Other - past Psychiatric treatment and history psychiatric treatment history: Inpatient psy settings in the past. Denies a fam psy hx. - Social History Social history: lives with family Mental Status Exam - Vital signs Last Vital Signs Temp 98.9 F 03/11/18 08:42 Pulse 89 03/11/18 08:36 Resp 14 03/11/18 08:42 BP 105/54 03/11/18 08:36 Pulse Ox 100 03/11/18 08:36 - Exam Narrative exam: MSE: Appearance: calm, cooperative Behavior: regular eye contact Speech: regular rate and tone Mood: "okay" Affect: congruent to mood Thought Process: circumstantial Thought Content: denies Si/HI's and AVH's Motor Activity: lying in bed Cognition: A/O x3 Insight: variable Judgment: variable Results Result Diagrams: 03/10/18 23:40 03/10/18 01:00 Abnormal lab results 03/10/18 03/10/18 03/10/18 Range/Units 01:00 22:48 23:40 RBC (3.65-5.03) M/mm3 Hgb (10.1-14.3) gm/dl Hct (30.3-42.9) % MCH (28-32) pg Plt Count (140-440) K/mm3 Seg Neutrophils % (40.0-70.0) % BUN 6 L (7-17) mg/dL Creatinine 0.5 L (0.7-1.2) mg/dL HCG, Quant (0-4) mIU/mL Urine WBC (Auto) 34.0 H (0.0-6.0) /HPF Salicylates < 0.3 L (2.8-20.0) mg/dL Acetaminophen (10.0-30.0) ug/mL 03/10/18 03/10/18 03/10/18 Range/Units 23:40 23:40 23:40 RBC 3.54 L (3.65-5.03) M/mm3 Hgb 9.2 L (10.1-14.3) gm/dl Hct 28.6 L (30.3-42.9) % MCH 26 L (28-32) pg Plt Count 453 H (140-440) K/mm3 Seg Neutrophils % 75.1 H (40.0-70.0) % BUN (7-17) mg/dL Creatinine (0.7-1.2) mg/dL HCG, Quant 5431 H (0-4) mIU/mL Urine WBC (Auto) (0.0-6.0) /HPF Salicylates (2.8-20.0) mg/dL Acetaminophen < 5.0 L (10.0-30.0) ug/mL All other labs normal. Assessment and Plan Assessment and plan: Impression: Hx of Bipolar DO. Today the patient is calm during the assessment. The patient is . Recommendation/Plan: Reevaluate 1013 in 24 hours. Risk/Benefits of mood stabilizers discussed with the patient, she declines medications at this time. Dispo: If the patient's 1013 is rescinded in 24 hours, she can follow up with [facility] for outpatient psy services. Will staff with Dr Charity Sims.
[2018-03-11 17:25] VITALS: BP 115/52
== END 2018-03-11 21:11 ==
LOC: EEVIPCON 22:34 → ED 22:34
DX: O99.340 Other mental disorders complicating pregnancy, unspecified trimester (principal); O23.40 Unspecified infection of urinary tract in pregnancy, unspecified trimester; Z3A.00 Weeks of gestation of pregnancy not specified
CPT/HCPCS: 36415; 80048; 80307; 81001; 84702; 85025; 99285; G0480; 80320

== ENCOUNTER 2018-04-12 18:16 | Outpatient (CLI) | payer MEDICAID | END 2018-04-12 21:43 | disposition home or self-care (01) | LOC: TRG 18:16 | CPT/HCPCS: 59025 ==

== ENCOUNTER 2018-04-15 06:42 | Outpatient (CLI) | payer MEDICAID ==
[2018-04-15] MEDS ORDERED: LACTATED RINGERS 1,000 ML ONE (07:14)
[2018-04-15] MEDS ORDERED: LACTATED RINGERS 500 ML IV ONE (07:27)
[2018-04-15 08:31] LABS: Hematocrit 23.7 % (30.3-42.9); Hemoglobin 7.9 gm/dl (10.1-14.3); Mean Corpuscular HGB Conc 34 % (30-34); Mean Corpuscular Volume 78 fl (79-97); Platelet Count 346 K/mm3 (140-440); Red Blood Count 3.03 M/mm3 (3.65-5.03); Red Cell Distribution Width 14.9 % (13.2-15.2)
[2018-04-15 08:32] VITALS: BP 114/63
[2018-04-15 08:46] LABS: Bacteria,Urine 2+ /HPF (Negative); Bilirubin,Urine NEG (Negative); Blood,Urine NEG (Negative); Color,Urine Yellow (Yellow); Mucus,Urine 3+ /HPF; Urobilinogen,Urine < 2.0 mg/dL (<2.0)
[2018-04-15 08:47] LABS: Amphetamine Screen,Urine PRESUMPTIVE NEGATIVE; Benzodiazepines Screen,Urine PRESUMPTIVE NEGATIVE; Cannabinoid Screen,Urine PRESUMPTIVE NEGATIVE; Cocaine Screen,Urine PRESUMPTIVE NEGATIVE; Methadone Screen,Urine PRESUMPTIVE NEGATIVE; Opiate Screen,Urine PRESUMPTIVE NEGATIVE
[2018-04-15] MEDS ORDERED: ceFAZolin 2 GM in NACL 0.9% 100 ML IV ONE (10:00)
== END 2018-04-15 10:25 | disposition home or self-care (01) ==
LOC: TRG 06:42
PROVIDERS: ATTEND Obstetrics & Gynecology
DX: O26.893 Other specified pregnancy related conditions, third trimester (principal); O10.013 Pre-existing essential hypertension complicating pregnancy, third trimester; R10.9 Unspecified abdominal pain; R60.9 Edema, unspecified; Z3A.36 36 weeks gestation of pregnancy
CPT/HCPCS: 36415; 59025; 80307; 81001; 85027; 96360; J0690; J7120

== ENCOUNTER 2018-04-20 20:09 | Emergency (ER) | payer MEDICAID ==
[2018-04-21] MEDS ORDERED: TYLENOL PO ONE (02:16)
--- NOTE | 2018-04-21 02:46 | Emergency Department Report ---
<ELIECER LAM - Last Filed: 04/21/18 07:06> ED Extremity Problem HPI - General Chief complaint: Extremity Problem,Nontraumatic Stated complaint: BOTH FEET SWELLING AND LEGS Time Seen by Provider: 04/21/18 01:57 Source: patient Mode of arrival: Ambulatory Limitations: No Limitations - History of Present Illness Initial comments: Patient is a 38-year-old AA female who is 9 months patient is A0, 1 vaginal , 1 c section delivery, patient presents for bilateral lower extremity edema denies hypertension denies diabetes patient currently does not have OBGYN, bilateral lower extremity edema has been a ongoing problem since onset, patient denies shortness of breath no chest pain no nausea vomiting no back pain and no previous DVT no vaginal bleeding ,no abdominal pain, patient states increased lower extremity pain after prolonged standing 2 days ago there is no calf tenderness no numbness no tingling fever or chills, usual tx is simple elevation but this technique is not working this time. MD Complaint: extremity swelling Onset/Timin -: month(s) Location: left, right History of Same: Yes -: Yes myalgia Radiation: distal Severity scale (0 -10): 3 Quality: aching Consistency: constant Improves with: other (elevation) Worsens with: weight bearing, walking, exertion, palpation Associated Symptoms: myalgias - Related Data Previous Rx's Medication Instructions Recorded Last Taken Type Nitrofurantoin [place] 100 mg PO BID #14 capsule 04/15/18 Unknown Rx [Macrodantin] Allergies Allergy/AdvReac Type Severity Reaction Status Date / Time No Known Allergies Allergy Verified 01/02/18 21:09 ED Review of Systems Constitutional: denies: chills, fever Eyes: denies: eye pain, eye discharge, vision change ENT: denies: ear pain, throat pain Respiratory: denies: cough, shortness of breath, wheezing Cardiovascular: denies: chest pain, palpitations Endocrine: no symptoms reported Gastrointestinal: denies: abdominal pain, nausea, vomiting, diarrhea Genitourinary: denies: urgency, dysuria, discharge Musculoskeletal: myalgia, other (bilate Lower Edema ) Skin: denies: rash, lesions Neurological: denies: headache, weakness, numbness, paresthesias, confusion, abnormal gait, vertigo Psychiatric: denies: anxiety, depression Hematological/Lymphatic: denies: easy bleeding, easy bruising ED Past Medical Hx - Past Medical History Hx Hypertension: Yes (not on meds) Hx Diabetes: No Hx Deep Vein Thrombosis: No Hx Renal Disease: No Hx Sickle Cell Disease: No Hx Seizures: No Hx Psychiatric Treatment: Yes (Anxiety,depression,bipolar) Hx Asthma: No Hx HIV: No - Surgical History Additional Surgical History: x1 - Social History Smoking Status: Never Smoker Substance Use Type: None - Medications Home Medications: Home Medications Medication Instructions Recorded Confirmed Last Taken Type Nitrofurantoin Macrocrystal 100 mg PO BID #14 capsule 04/15/18 Unknown Rx [Macrodantin] ED Physical Exam - General Limitations: No Limitations General appearance: alert, in no apparent distress - Head Head exam: Present: atraumatic, normocephalic - Eye Eye exam: Present: normal appearance, PERRL, EOMI Pupils: Present: normal accommodation - ENT ENT exam: Present: mucous membranes moist - Neck Neck exam: Present: normal inspection - Respiratory Respiratory exam: Present: normal lung sounds bilaterally. Absent: respiratory distress, wheezes, rales, rhonchi, stridor, chest wall tenderness, accessory muscle use, decreased breath sounds, prolonged expiratory - Cardiovascular Cardiovascular Exam: Present: regular rate, normal rhythm, normal heart sounds. Absent: systolic murmur, diastolic murmur, rubs, gallop, JVD - GI/Abdominal GI/Abdominal exam: Present: soft, normal bowel sounds. Absent: tenderness, rebound, organomegaly, bruit, pulsatile mass - Rectal Rectal exam: Present: deferred - Extremities Exam Extremities exam: Present: normal inspection, full ROM, tenderness (generalized LE tenderness to palpation), normal capillary refill. Absent: joint swelling, calf tenderness - Expanded Lower Extremity Exam Left Knee exam: Present: full ROM, tenderness, swelling, full knee extension. Absent: abrasion, laceration, ecchymosis, deformity, crepidus, dislocation, erythema, effusion, pain w/ pronation/supination, posterior draw sign, pain/laxity with valgus, pain/laxity with varus Lower Leg exam: Present: normal inspection, full ROM, swelling. Absent: abrasion, laceration, ecchymosis, palpable cord, Miguel's sign Ankle exam: Present: normal inspection, full ROM, tenderness, abrasion, laceration Foot/Toe exam: Present: normal inspection, full ROM, tenderness. Absent: swelling, abrasion, laceration, ecchymosis, deformity, crepidus, dislocation, erythema, amputation, puncture wound, foreign body, calcaneal tenderness, tenderness at base of 5th metatarsal, nail avulsion, subungual hematoma Neuro vascular tendon exam: Present: no vascular compromise. Absent: pulse deficit, abnormal cap refill, motor deficit, sensory deficit, tendon deficit, extremity cold to touch, pallor, abnormal 2-point discrimination, decreased fine/light touch, foot drop, peroneal nerve deficit, significant pain with passive ROM of distal joint Gait: Positive: observed and limited by pain Right Hip exam: Present: full ROM. Absent: tenderness Upper Leg exam: Present: normal inspection, full ROM. Absent: tenderness Knee exam: Present: normal inspection, full ROM, swelling, abrasion, laceration, ecchymosis. Absent: tenderness Lower Leg exam: Present: tenderness, swelling. Absent: abrasion, laceration, ecchymosis, deformity, crepidus Ankle exam: Present: normal inspection, full ROM Foot/Toe exam: Present: normal inspection, full ROM Neuro vascular tendon exam: Present: no vascular compromise. Absent: pulse deficit, abnormal cap refill, motor deficit, sensory deficit, tendon deficit Gait: Positive: observed and limited by pain - Back Exam Back exam: Present: normal inspection, full ROM, tenderness, paraspinal tenderness, vertebral tenderness. Absent: CVA tenderness (R), CVA tenderness (L), muscle spasm, rash noted - Neurological Exam Neurological exam: Present: alert, altered, oriented X3 - Psychiatric Psychiatric exam: Present: normal affect, normal mood - Skin Skin exam: Present: warm, dry, intact, normal color. Absent: rash, cyanosis, diaphoretic, erythema, urticaria, vesicles, petechiae, pallor, abrasion, ecchymosis ED Medical Decision Making - Lab Data Result diagrams: 04/21/18 02:30 04/21/18 02:30 Labs 04/21/18 04/21/18 04/21/18 02:30 02:30 02:30 WBC 6.9 RBC 3.28 L Hgb 8.4 L Hct 25.7 L MCV 78 L MCH 26 L MCHC 33 RDW 14.8 Plt Count 347 Lymph % (Auto) 21.4 [place] % (Auto) 7.1 Eos % (Auto) 1.1 Baso % (Auto) 0.2 Lymph # 1.5 [place] # 0.5 Eos # 0.1 Baso # 0.0 Seg Neutrophils % 70.2 H Seg Neutrophils # 4.8 PT 13.0 INR 0.93 APTT 23.8 L D-Dimer 1164.25 H Sodium 132 L Potassium 4.0 Chloride 97.9 L Carbon Dioxide 23 Anion Gap 15 BUN 5 L Creatinine 0.4 L Estimated GFR > 60 BUN/Creatinine Ratio 13 Glucose 91 Calcium 9.0 Total Bilirubin < 0.20 AST 16 ALT 9 Alkaline Phosphatase 100 Total Protein 6.3 Albumin 3.3 L Albumin/Globulin Ratio 1.1 - Radiology Data Radiology results: report reviewed, image reviewed FINDINGS: Heart and pericardium: Normal. Thoracic aorta: Normal. Pulmonary vasculature: There is no evidence of pulmonary arterial emboli. Lymph nodes: No enlarged thoracic lymph nodes. Lungs: Normal. Pleural space: No effusion, thickening, or pneumothorax. Musculoskeletal structures: No significant abnormality. Upper abdominal structures: No significant abnormality. IMPRESSION: Normal Examination . This document is electronically signed by Marlin Quiroz DO., April 21 2018 05:54:01 AM ET Transcribed By: [facility] Dictated By: MARLIN QUIROZ MD Electronically Authenticated By: MARLIN QUIROZ MD Signed Date/Time: 04/21/18 0556 DD/ 0548 TD/TT: 04/21/18 0549 - Medical Decision Making CTA: neg for PE, D dimer:116, Bilat LE doppler pending if neg will dc to home pt will follow up with OBGYN in 2-3 days return to ed if symptoms worsen, pt care signed out to [facility], pt in stable condition at this time. pt will be disposed after Doppler study. ED Disposition Clinical Impression: Dependent edema, Disposition: DC-01 TO HOME OR SELFCARE Condition: Stable Instructions: (ED), Leg Edema (ED) Additional Instructions: DIET AND ACTIVITY TOLERATED TYLENOL FOR PAIN KEEP LEGS ELEVATED THIS WILL HELP SWELLING DRINK PLENTY OF WATER FOLLOW UP WITH OBGYN IN AM CALL AND LET THEM KNOW YOU WERE SEEN IN ER. CTA AND DUPLEX OF LEGS NORMAL. Referrals: PRIMARY CARE, [Primary Care Provider] - 3-5 Days <LAURA HERNANDEZ - Last Filed: 04/21/18 09:05> ED Review of Systems ROS: Stated complaint: BOTH FEET SWELLING AND LEGS Other details as noted in HPI ED Course Vital Signs 04/20/18 04/20/18 20:16 21:08 Temperature 97.7 F 97.9 F Pulse Rate 85 88 Respiratory 18 18 Rate Blood Pressure 130/56 103/64 O2 Sat by Pulse 99 96 Oximetry ED Medical Decision Making - Lab Data Result diagrams: 04/21/18 02:30 04/21/18 02:30 - Medical Decision Making US DOPPLER NEG FOR DVT. WILL DC HOME WITH FOLLOW UP TO OBGYN IN AM. Labs 04/21/18 04/21/18 04/21/18 02:30 02:30 02:30 WBC 6.9 RBC 3.28 L Hgb 8.4 L Hct 25.7 L MCV 78 L MCH 26 L MCHC 33 RDW 14.8 Plt Count 347 Lymph % (Auto) 21.4 [place] % (Auto) 7.1 Eos % (Auto) 1.1 Baso % (Auto) 0.2 Lymph # 1.5 [place] # 0.5 Eos # 0.1 Baso # 0.0 Seg Neutrophils % 70.2 H Seg Neutrophils # 4.8 PT 13.0 INR 0.93 APTT 23.8 L D-Dimer 1164.25 H Sodium 132 L Potassium 4.0 Chloride 97.9 L Carbon Dioxide 23 Anion Gap 15 BUN 5 L Creatinine 0.4 L Estimated GFR > 60 BUN/Creatinine Ratio 13 Glucose 91 Calcium 9.0 Total Bilirubin < 0.20 AST 16 ALT 9 Alkaline Phosphatase 100 Total Protein 6.3 Albumin 3.3 L Albumin/Globulin Ratio 1.1 Critical care attestation.: If time is entered above; I have spent that time in minutes in the direct care of this critically ill patient, excluding procedure time. ED Disposition Is pt being admited?: No Does the pt Need Aspirin: No Time of Disposition: 09:02
[2018-04-21 02:47] LABS: Basophils % (Auto) 0.2 % (0.0-1.8); Eosinophils # (Auto) 0.1 K/mm3 (0.0-0.4); Eosinophils % (Auto) 1.1 % (0.0-4.3); Hematocrit 25.7 % (30.3-42.9); Hemoglobin 8.4 gm/dl (10.1-14.3); Lymphocytes # (Auto) 1.5 K/mm3 (1.2-5.4); Lymphocytes % (Auto) 21.4 % (13.4-35.0); Mean Corpuscular HGB Conc 33 % (30-34); Mean Corpuscular Volume 78 fl (79-97); Monocytes # (Auto) 0.5 K/mm3 (0.0-0.8); Monocytes % (Auto) 7.1 % (0.0-7.3); Platelet Count 347 K/mm3 (140-440); Red Blood Count 3.28 M/mm3 (3.65-5.03); Red Cell Distribution Width 14.8 % (13.2-15.2)
[2018-04-21 02:58] LABS: INR 0.93 (0.87-1.13)
[2018-04-21 02:59] LABS: Partial Thromboplastin Time 23.8 Sec. (24.2-36.6)
[2018-04-21] MEDS ORDERED: NACL 0.9% 1000 ML 1,000 ML IV ONE (03:02)
[2018-04-21] MEDS ORDERED: ROCEPHIN/NS 1 GM/50 ML 1 GM/50 ML BAG IV ONE (03:03)
[2018-04-21 03:39] LABS: Alanine Aminotransferase 9 units/L (7-56); Albumin 3.3 g/dL (3.9-5); BUN/Creatinine Ratio 13; Blood Urea Nitrogen 5 mg/dL (7-17); Hemolysis Index 2
--- NOTE | 2018-04-21 05:56 | Cat Scan Report ---
PROCEDURE: CT ANGIO CHEST TECHNIQUE: Computerized tomographic angiography of the chest was performed after the IV injection of iodinated nonionic contrast including image processing. The image data was postprocessed using 2-di mensional multiplanar reformatted (MPR) and 3-dimensional (MIP and/or volume rendered) techniques. Au tomated exposure control, adjustment of mA and/or kV according to patient size, or iterative reconstr uction dose optimization techniques were utilized. HISTORY: sob preg elevated D Dimer COMPARISONS: None . FINDINGS: Heart and pericardium: Normal. Thoracic aorta: Normal. Pulmonary vasculature: There is no evidence of pulmonary arterial emboli. Lymph nodes: No enlarged thoracic lymph nodes. Lungs: Normal. Pleural space: No effusion, thickening, or pneumothorax. Musculoskeletal structures: No significant abnormality. Upper abdominal structures: No significant abnormality. IMPRESSION: Normal Examination . This document is electronically signed by Marlin Quiroz DO., April 21 2018 05:54:01 AM ET
--- NOTE | 2018-04-21 08:54 | Vascular Lab Report ---
PROCEDURE: VL VENOUS DUPLEX LE BILAT TECHNIQUE: Grayscale, color and spectral Doppler ultrasound evaluation of the deep veins in both low er extremities with compression and augmentation HISTORY: bilat le edema pain COMPARISONS: None FINDINGS: The deep veins in the right lower extremity demonstrate normal compression, color Doppler appearance and spectral Doppler waveforms. Normal respiratory variation and response to augmentation (where perf ormed.) The deep veins in the left lower extremity demonstrate normal compression, color Doppler appearance a nd spectral Doppler waveforms. Normal respiratory variation and response to augmentation (where perfo rmed.) IMPRESSION: No sonographic evidence of DVT in the imaged portions of the right and left lower extremities. This document is electronically signed by Ketan Reyes MD., April 21 2018 08:51:32 AM ET
[2018-04-21 09:38] VITALS: BP 106/64
== END 2018-04-21 09:38 | disposition home or self-care (01) ==
LOC: ED 20:09
DX: O26.893 Other specified pregnancy related conditions, third trimester (principal); R60.9 Edema, unspecified; I10 Essential (primary) hypertension
CPT/HCPCS: 36415; 71275; 80053; 85025; 85379; 85610; 85730; 93970; 96365; 99284; J0696; J7030; Q9967; 96361

== ENCOUNTER 2020-09-19 08:26 | Emergency (ER) | payer MEDICAID | END 2020-09-19 08:45 | disposition left against medical advice (07) | LOC: ED 08:26 | DX: N93.9 Abnormal uterine and vaginal bleeding, unspecified (principal); Z53.21 Procedure and treatment not carried out due to patient leaving prior to being seen by health care provider ==